=== PATIENT | female | born 1955 | race Caucasian/White ===

== ENCOUNTER 2016-03-11 20:09 | Inpatient (IN) | payer OTHER ==
[~2016-03-11] VITALS: Ht 162.6 cm; Wt 118.3 kg
[~2016-03-11 20:09] MED LIST: AMBIEN10 MG PO; AMITRIPTYLINE H10 MG PO; AMLODIPINE BESY10 MG PO; AMLODIPINE BESYL5 MG PO; AMOXICILLIN500 M1 PO; AMOXICILLIN500 MG PO; ANTI-DIARRHEAL2 M2 PO; APIDRA SOL100 UNIT/1 SC; APIDRA100 UNIT/1; APIDRA100 UNIT/1 SC; APIDRA100 UNIT/1 SQ; APIDRA100 UNITS/ SC; ASMANEX TW200 MICROG IH; ASPIR 8181 M1 PO; ASPIR-LOW81 MG PO; ATARAX,VISTARIL25 MG PO; ATIVAN0.5 MG PO; Aspirin E.C. PO; Atarax,Vistaril PO; BAYER CHEWABLE81 MG PO; CEFUROXIME500 MG PO; CLOPIDOGREL75 MG PO; COUMADIN,JANTO2.5 MG PO; COZAAR50 MG PO; CRESTOR10 MG PO; CRESTOR20 MG PO; Calan SR,Covera HS,I PO; EFFEXOR75 MG PO; ENDOCET 5-3251 EACH PO; ERGOCALCIF50000 UNIT PO; FLUCONAZOLE100 MG PO; FUROSEMIDE20 MG PO; IRON 100 PLUS1 EACH PO; K-DUR10 ME2 PO; K-DUR20 MEQ PO; LANTUS 10100 UNITS/ SC; LANTUS 3 M100 UNITS/ SC; LANTUS 3 M100 UNITS1 SC; LANTUS100 UNIT/1 SQ; LASIX20 MG PO; LASIX40 MG PO; LEVEMIR100 UNIT/2 SC; LEVOTHYROXINE125 MCG PO; LEVOXYL125 MCG PO; LOPERAMIDE2 M1 PO; LOPERAMIDE2 MG PO; LOPRESSOR50 MG PO; LORAZEPAM0.5 MG PO; LOSARTAN POTASS50 MG PO; Lasix PO; Levothroid,Synthroid PO; Lopressor PO; MAXZIDE 75/51 TABLET PO; METOCLOPRAMIDE H5 MG PO; METOLAZONE2.5 MG PO; METOPROLOL TART25 MG PO; MOTRIN600 MG PO; MYCOSTATIN 100,60 ML PO; NAPROSYN-EC500 MG PO; NITROSTAT0.4 MG SL; NITROSTAT0.6 MG SL; NORCO 5/3251 TABLET PO; OMEPRAZOLE40 M1 PO; PAXIL10 MG PO; PAXIL20 MG PO; PAXIL30 MG PO; PHENERGAN W/ COD1 ML PO; PHENERGAN-CODE120 ML PO; PLAVIX75 MG PO; PREDNISONE10 MG PO; PREDNISONE20 MG PO; PROAIR HFA8.5 GM IH; PROMETHAZINE-P118 M1 PO; RANITIDINE HCL150 MG PO; RANITIDINE HCL300 M1 PO; RANITIDINE HCL300 MG PO; REGLAN5 MG PO; SYNTHROID100 MCG PO; SYNTHROID125 MCG PO; TOPROL XL25 MG PO; Tessalon Perle PO; ULTRACET1 TABLET PO; ULTRAM50 MG PO; UNITHROID112 MCG PO; VENLAFAXINE HCL75 M3 PO; VENTOLIN; VENTOLIN HFA18 GM IH; VIT D; VITAMIN D2400 UNIT PO; VITAMIN D250000 UNIT PO; Vitamin D, Drisdol PO; WELCHOL625 MG PO; ZANTAC300 MG PO; ZOFRAN4 MG PO; Zestril,Prinivil PO; Zocor PO
[2016-03-11] MEDS ORDERED: NITROSTAT0.4 MG SL (21:33)
[2016-03-11] MEDS ORDERED: ERGOCALCIF50000 UNIT PO (21:34)
[2016-03-11] MEDS ORDERED: PHENERGAN-CODE120 ML PO (21:35)
[2016-03-11] MEDS ORDERED: APIDRA100 UNIT/1 SC (21:36)
[2016-03-11] MEDS ORDERED: OMEPRAZOLE40 M1 PO (21:39)
[2016-03-11] MEDS ORDERED: ZOFRAN ODT4 MG PO (21:39)
[2016-03-11] MEDS ORDERED: LORAZEPAM0.5 MG PO (21:40)
[2016-03-11] MEDS ORDERED: EFFEXOR XR75 MG PO (21:41)
[2016-03-11 22:02] LABS: HEMATOCRIT 32.6 % (36.0-46.0); MCH 29.5 PG (29.0-34.0); MCHC 32.5 G/DL (30.0-36.0); MCV 90.8 FL (83-99); MEAN PLAT.VOLUME 11.4 uM^3 (9.5-12.4); PLATELET COUNT 226 K/uL (156-360); RBC DIS.WIDTH-CV 13.9 % (11.8-14.6); RBC DIS.WIDTH-SD 44.5 % (39-53); RED BLOOD COUNT 3.59 M/uL (3.80-5.20); WHITE BLOOD COUNT 8.8 K/uL (4.1-10.2)
[2016-03-11 22:10] LABS: CHLORIDE 109 mEq/L (99-109); POTASSIUM 3.9 mEq/L (3.7-5.4); SODIUM 140 mEq/L (136-147)
[2016-03-11 22:12] LABS: GLUCOSE 141 mg/dL (70-99)
[2016-03-11 22:13] LABS: ANION GAP 8 MEQ/L (2-14)
[2016-03-11 22:16] LABS: GFR ESTIMATE (CALCULATED) 37 mL/min/
[2016-03-11 22:17] LABS: UREA NITROGEN (BUN) 23 mg/dL (9-23)
[2016-03-11 22:22] LABS: TROP-I INTERPRETATION NEGATIVE; TROPONIN-I 0.02 ng/mL (0.0-0.30)
[2016-03-12 01:12] LABS: D-DIMER ELISA 0.72 mg/L FEU (< 0.57)
[2016-03-12 02:14] LABS: INFLUENZA A VIRAL ANTIGEN NEGATIVE; INFLUENZA B VIRAL ANTIGEN NEGATIVE
[2016-03-12 05:47] LABS: HEMATOCRIT 32.6 % (36.0-46.0); MCH 29.1 PG (29.0-34.0); MCHC 32.2 G/DL (30.0-36.0); MCV 90.3 FL (83-99); MEAN PLAT.VOLUME 11.5 uM^3 (9.5-12.4); PLATELET COUNT 213 K/uL (156-360); RBC DIS.WIDTH-CV 13.8 % (11.8-14.6); RBC DIS.WIDTH-SD 44.1 % (39-53); RED BLOOD COUNT 3.61 M/uL (3.80-5.20); WHITE BLOOD COUNT 7.1 K/uL (4.1-10.2)
[2016-03-12 05:57] LABS: CHLORIDE 106 mEq/L (99-109); POTASSIUM 4.6 mEq/L (3.7-5.4); SODIUM 137 mEq/L (136-147)
[2016-03-12 06:00] LABS: ANION GAP 11 MEQ/L (2-14)
[2016-03-12 06:01] LABS: TOTAL BILIRUBIN 0.5 mg/dL (0.0-1.0)
[2016-03-12 06:02] LABS: ALKALINE PHOSPHATASE 114 IU/L (3-129)
[2016-03-12 06:03] LABS: GFR ESTIMATE (CALCULATED) 30 mL/min/
[2016-03-12 06:04] LABS: UREA NITROGEN (BUN) 29 mg/dL (9-23)
[2016-03-12 06:07] LABS: TROP-I INTERPRETATION NEGATIVE; TROPONIN-I 0.02 ng/mL (0.0-0.30)
[2016-03-12 06:25] LABS: GLUCOSE 406 mg/dL (70-99)
[2016-03-12 08:27] LABS: POINT-OF-CARE METER ID UU13113702
[2016-03-12 13:06] LABS: TROP-I INTERPRETATION NEGATIVE; TROPONIN-I 0.01 ng/mL (0.0-0.30)
[2016-03-12 14:16] LABS: Estimated Average Glucose 220 mg/dL (70-123); HEMOGLOBIN A1c (GLYCOHEMOGLOB) 9.3 % HGB (Below 5.7)
[2016-03-12 15:30] VITALS: BP 172/79
[2016-03-12 19:38] VITALS: BP 158/74
[2016-03-12 23:49] VITALS: BP 152/73
[2016-03-13 03:18] VITALS: BP 148/72
[2016-03-13 06:59] LABS: HEMATOCRIT 33.5 % (36.0-46.0); MCH 29.3 PG (29.0-34.0); MCHC 32.5 G/DL (30.0-36.0); MCV 90.1 FL (83-99); MEAN PLAT.VOLUME 11.5 uM^3 (9.5-12.4); RBC DIS.WIDTH-SD 46.1 % (39-53); RED BLOOD COUNT 3.72 M/uL (3.80-5.20)
[2016-03-13 07:00] LABS: PLATELET COUNT 277 K/uL (156-360); WHITE BLOOD COUNT 10.4 K/uL (4.1-10.2)
[2016-03-13 07:11] LABS: ANION GAP 10 MEQ/L (2-14); CHLORIDE 107 MEQ/L (99-109); GFR ESTIMATE (CALCULATED) 30 mL/min/; POTASSIUM 3.9 MEQ/L (3.7-5.4); SAMPLE HEMOLYSIS CHECK 0; SAMPLE ICTERIC CHECK 0; SAMPLE LIPEMIA CHECK 0; SODIUM 143 MEQ/L (136-147)
[2016-03-13 07:20] LABS: GLUCOSE 72 mg/dL (70-99); UREA NITROGEN (BUN) 44 mg/dL (9-23)
[2016-03-13 07:45] VITALS: BP 177/80
[2016-03-13 12:10] VITALS: BP 146/70
[2016-03-13 16:45] VITALS: BP 142/77
[2016-03-13 19:40] VITALS: BP 146/72
[2016-03-13 23:44] VITALS: BP 163/82
[2016-03-14 03:41] VITALS: BP 123/79
[2016-03-14 06:30] LABS: HEMATOCRIT 35.9 % (36.0-46.0); MCH 29.6 PG (29.0-34.0); MCHC 32.6 G/DL (30.0-36.0); MCV 90.9 FL (83-99); MEAN PLAT.VOLUME 11.4 uM^3 (9.5-12.4); PLATELET COUNT 253 K/uL (156-360); RBC DIS.WIDTH-CV 13.8 % (11.8-14.6); RBC DIS.WIDTH-SD 46.4 % (39-53); RED BLOOD COUNT 3.95 M/uL (3.80-5.20)
[2016-03-14 06:31] LABS: WHITE BLOOD COUNT 5.9 K/uL (4.1-10.2)
[2016-03-14 06:47] LABS: ANION GAP 10 MEQ/L (2-14); CHLORIDE 102 MEQ/L (99-109); GFR ESTIMATE (CALCULATED) 22 mL/min/; POTASSIUM 4.4 MEQ/L (3.7-5.4); SAMPLE HEMOLYSIS CHECK 0; SAMPLE ICTERIC CHECK 0; SAMPLE LIPEMIA CHECK 0; SODIUM 138 MEQ/L (136-147); UREA NITROGEN (BUN) 53 mg/dL (9-23)
[2016-03-14 06:57] LABS: GLUCOSE 254 mg/dL (70-99)
[2016-03-14 08:00] VITALS: BP 156/87
[2016-03-14 15:33] VITALS: BP 142/80
[2016-03-14 23:20] VITALS: BP 166/76
[2016-03-15 07:40] LABS: ANION GAP 11 MEQ/L (2-14); CHLORIDE 101 MEQ/L (99-109); GFR ESTIMATE (CALCULATED) 28 mL/min/; GLUCOSE 215 mg/dL (70-99); POTASSIUM 4.3 MEQ/L (3.7-5.4); SAMPLE HEMOLYSIS CHECK 1; SAMPLE ICTERIC CHECK 0; SAMPLE LIPEMIA CHECK 0; SODIUM 137 MEQ/L (136-147); UREA NITROGEN (BUN) 53 mg/dL (9-23)
[2016-03-15 07:54] VITALS: BP 156/93
[2016-03-15 16:04] VITALS: BP 140/69
[2016-03-15 23:15] VITALS: BP 179/95
[2016-03-16 07:51] LABS: ANION GAP 7 MEQ/L (2-14); CHLORIDE 103 MEQ/L (99-109); EOSINOPHIL (%) 0.1 % (0-5); GFR ESTIMATE (CALCULATED) 30 mL/min/; GLUCOSE 151 mg/dL (70-99); HEMATOCRIT 36.8 % (36.0-46.0); IMMATURE GRANULOCYTE (%) 0.7 % (0.0-0.7); IMMATURE GRANULOCYTE COUNT 0.1 K/uL; LYMPHOCYTE COUNT 1.6 K/uL (1.0-2.8); MCH 28.9 PG (29.0-34.0); MCHC 32.3 G/DL (30.0-36.0); MCV 89.3 FL (83-99); MEAN PLAT.VOLUME 11.1 uM^3 (9.5-12.4); MONOCYTE COUNT 0.5 K/uL (0-0.8); NEUTROPHIL (%) 75.1 % (45-76); NEUTROPHIL COUNT 6.5 K/uL (1.8-6.4); PLATELET COUNT 301 K/uL (156-360); POTASSIUM 4.4 MEQ/L (3.7-5.4); RBC DIS.WIDTH-CV 13.5 % (11.8-14.6); RBC DIS.WIDTH-SD 44.2 % (39-53); RED BLOOD COUNT 4.12 M/uL (3.80-5.20); SAMPLE HEMOLYSIS CHECK 0; SAMPLE ICTERIC CHECK 0; SAMPLE LIPEMIA CHECK 0; SODIUM 137 MEQ/L (136-147); UREA NITROGEN (BUN) 50 mg/dL (9-23)
[2016-03-16 08:04] LABS: WHITE BLOOD COUNT 8.6 K/uL (4.1-10.2)
[2016-03-16 08:25] VITALS: BP 179/93
[2016-03-16] MEDS ORDERED: CEFTIN250 MG PO (12:55)
[2016-03-16] MEDS ORDERED: AMLODIPINE BES2.5 MG PO (12:55)
[2016-03-16] MEDS ORDERED: FUROSEMIDE20 MG PO (12:56)
[2016-03-16] MEDS ORDERED: PREDNISONE20 MG PO (12:58)
[2016-03-16] MEDS ORDERED: MONTELUKAST SOD10 MG PO (12:59)
[2016-03-16] MEDS ORDERED: FLOVENT 11120 INHALA IH (13:37)
== END 2016-03-16 14:15 | disposition home or self-care (01) | DRG 190 ==
LOC: EME 20:09 → EDOF 03-12 00:30 → 2EAST 03-12 00:30
PROVIDERS: Hospitalist; Internal Medicine; Physician Assistant Medical
DX: J44.0 Chronic obstructive pulmonary disease with (acute) lower respiratory infection (principal); J96.01 Acute respiratory failure with hypoxia; I50.43 Acute on chronic combined systolic (congestive) and diastolic (congestive) heart failure; N17.9 Acute kidney failure, unspecified; I13.0 Hypertensive heart and chronic kidney disease with heart failure and stage 1 through stage 4 chronic kidney disease, or unspecified chronic kidney disease; Z68.41 Body mass index [BMI] 40.0-44.9, adult; J44.1 Chronic obstructive pulmonary disease with (acute) exacerbation; N18.3 Chronic kidney disease, stage 3 (moderate); I25.10 Atherosclerotic heart disease of native coronary artery without angina pectoris; E11.22 Type 2 diabetes mellitus with diabetic chronic kidney disease; I25.5 Ischemic cardiomyopathy; F32.9 Major depressive disorder, single episode, unspecified; K21.9 Gastro-esophageal reflux disease without esophagitis; Z95.5 Presence of coronary angioplasty implant and graft; J20.9 Acute bronchitis, unspecified; B19.20 Unspecified viral hepatitis C without hepatic coma; E03.9 Hypothyroidism, unspecified; E78.5 Hyperlipidemia, unspecified; M19.90 Unspecified osteoarthritis, unspecified site; Z79.4 Long term (current) use of insulin; E66.01 Morbid (severe) obesity due to excess calories; I45.10 Unspecified right bundle-branch block; R60.0 Localized edema; Z88.6 Allergy status to analgesic agent; Z95.1 Presence of aortocoronary bypass graft; Z88.1 Allergy status to other antibiotic agents; Z88.8 Allergy status to other drugs, medicaments and biological substances; R53.1 Weakness; R91.1 Solitary pulmonary nodule
CPT/HCPCS: 71020; 71250; 78582; 80048; 80053; 82948; 83036; 84484; 85025; 85027; 85379; 87040; 87493; 87502; 93005; 93971; 94640; 94640 76; 94799; 99202; 99281; 99285; A9539; A9540; J0456; J0696; J1644; J1815; J1940; J1956; J2930; J7050; J7512

== ENCOUNTER 2016-04-12 21:35 | Inpatient (IN) | payer OTHER, BC ==
[~2016-04-12] VITALS: Ht 162.6 cm; Wt 116.0 kg
[~2016-04-12 21:35] MED LIST changes: +AMLODIPINE BES2.5 MG PO; +CEFTIN250 MG PO; +EFFEXOR XR75 MG PO; +FLOVENT 11120 INHALA IH; +MONTELUKAST SOD10 MG PO; +ZOFRAN ODT4 MG PO
[2016-04-12 21:59] LABS: HEMATOCRIT 39.4 % (36.0-46.0); MCH 29.4 PG (29.0-34.0); MCHC 33.8 G/DL (30.0-36.0); MCV 87.2 FL (83-99); MEAN PLAT.VOLUME 11.3 uM^3 (9.5-12.4); PLATELET COUNT 274 K/uL (156-360); RBC DIS.WIDTH-CV 13.9 % (11.8-14.6); RED BLOOD COUNT 4.52 M/uL (3.80-5.20)
[2016-04-12 22:13] LABS: CHLORIDE 100 mEq/L (99-109); POTASSIUM 3.8 mEq/L (3.7-5.4); SODIUM 141 mEq/L (136-147)
[2016-04-12 22:15] LABS: GLUCOSE 434 mg/dL (70-99)
[2016-04-12 22:16] LABS: ANION GAP 13 MEQ/L (2-14)
[2016-04-12 22:18] LABS: GFR ESTIMATE (CALCULATED) 30 mL/min/
[2016-04-12 22:19] LABS: TROP-I INTERPRETATION NEGATIVE; TROPONIN-I 0.02 ng/mL (0.0-0.30); UREA NITROGEN (BUN) 16 mg/dL (9-23)
[2016-04-12] MEDS ORDERED: DEXAMETHASONE6 MG PO (23:24)
[2016-04-12] MEDS ORDERED: LO-DOSE ASPIRIN81 M1 PO (23:26)
[2016-04-12] MEDS ORDERED: LASIX20 MG PO (23:28)
[2016-04-12] MEDS ORDERED: AMLODIPINE BES2.5 MG PO (23:29)
[2016-04-12 23:31] LABS: POINT-OF-CARE METER ID UU14100415
[2016-04-12] MEDS ORDERED: APIDRA SOL100 UNIT/1 SC (23:31)
[2016-04-12] MEDS ORDERED: LANTUS 3 M100 UNITS1 SC (23:31)
[2016-04-13] VITALS (8 sets, daily range): BP systolic 94–188; BP diastolic 52–90
[2016-04-13 05:46] LABS: TROP-I INTERPRETATION NEGATIVE; TROPONIN-I 0.04 ng/mL (0.0-0.30)
[2016-04-13 09:26] LABS: POINT-OF-CARE METER ID UU13113700
[2016-04-13 10:33] LABS: TROP-I INTERPRETATION NEGATIVE; TROPONIN-I 0.06 ng/mL (0.0-0.30)
[2016-04-13 17:55] LABS: POINT-OF-CARE METER ID UU13113700
[2016-04-13 21:47] LABS: POINT-OF-CARE METER ID UU14162513
[2016-04-14 05:08] VITALS: BP 113/65
[2016-04-14 06:40] LABS: EOSINOPHIL (%) 6.9 % (0-5); EOSINOPHIL COUNT 0.4 K/uL (0-0.3); HEMATOCRIT 35.6 % (36.0-46.0); IMMATURE GRANULOCYTE (%) 0.2 % (0.0-0.7); LYMPHOCYTE COUNT 1.7 K/uL (1.0-2.8); MCH 29.4 PG (29.0-34.0); MCHC 31.7 G/DL (30.0-36.0); MEAN PLAT.VOLUME 11.7 uM^3 (9.5-12.4); MONOCYTE COUNT 0.6 K/uL (0-0.8); NEUTROPHIL COUNT 3.4 K/uL (1.8-6.4); PLATELET COUNT 237 K/uL (156-360); RBC DIS.WIDTH-CV 14.7 % (11.8-14.6); RBC DIS.WIDTH-SD 49.9 % (39-53); RED BLOOD COUNT 3.85 M/uL (3.80-5.20); WHITE BLOOD COUNT 6.1 K/uL (4.1-10.2)
[2016-04-14 06:45] LABS: ALKALINE PHOSPHATASE 68 IU/L (3-129); ANION GAP 9 MEQ/L (2-14); CHLORIDE 104 MEQ/L (99-109); DIRECT BILIRUBIN 0.1 mg/dL (0.0-0.3); GFR ESTIMATE (CALCULATED) 14 mL/min/; MCV 92.5 FL (83-99); POTASSIUM 3.3 MEQ/L (3.7-5.4); SAMPLE HEMOLYSIS CHECK 0; SAMPLE ICTERIC CHECK 0; SAMPLE LIPEMIA CHECK 0; SODIUM 144 MEQ/L (136-147); TOTAL BILIRUBIN 0.4 MG/DL (0.0-1.0)
[2016-04-14 06:50] LABS: GLUCOSE 80 mg/dL (70-99); UREA NITROGEN (BUN) 26 mg/dL (9-23)
[2016-04-14 07:39] VITALS: BP 113/68
[2016-04-14 08:12] LABS: POINT-OF-CARE METER ID UU13113700
[2016-04-14 11:51] VITALS: BP 110/58
[2016-04-14 13:45] LABS: ADD MIUA? YES; BILIRUBIN SMALL; BLOOD SMALL; COLOR DK YELLOW ((YELLOW)); GLUCOSE (STRIP) 500; KETONES TRACE; LEUKOCYTES NEGATIVE; NITRITE NEGATIVE; PH, URINE 5.5 (5-8); PROTEIN (STRIP) >=300; SPECIFIC GRAVITY 1.025 (1.000-1.030); UROBILINOGEN 0.2 MG/DL (0.2-1.0)
[2016-04-14 15:57] VITALS: BP 106/63
[2016-04-14 16:02] LABS: BACTERIA RARE /HPF; CASTS PRESENT /LPF; CRYSTALS NONE SEEN; EPITHELIAL CELLS 2+ /HPF; MUCUS TRACE /LPF; RED BLOOD CELLS 0-5 /HPF (0-5); UCUL ADDED? NO; WHITE BLOOD CELLS RARE /HPF (0-5)
[2016-04-14 16:03] LABS: HYALINE CASTS 0-5 /LPF
[2016-04-14 16:04] LABS: COARSE GRANULAR CASTS 0-5 /LPF; WAXY CASTS 0-5 /LPF
[2016-04-14 21:33] VITALS: BP 150/72
[2016-04-14 21:50] LABS: POINT-OF-CARE METER ID UU13113700
[2016-04-15 04:44] VITALS: BP 122/76
[2016-04-15 06:24] LABS: EOSINOPHIL (%) 8.6 % (0-5); EOSINOPHIL COUNT 0.5 K/uL (0-0.3); LYMPHOCYTE COUNT 1.6 K/uL (1.0-2.8); MCH 29.5 PG (29.0-34.0); MCHC 31.7 G/DL (30.0-36.0); MCV 93.1 FL (83-99); MEAN PLAT.VOLUME 11.6 uM^3 (9.5-12.4); MONOCYTE (%) 9.6 % (3-12); MONOCYTE COUNT 0.6 K/uL (0-0.8); NEUTROPHIL (%) 54.4 % (45-76); NEUTROPHIL COUNT 3.3 K/uL (1.8-6.4); PLATELET COUNT 216 K/uL (156-360); RBC DIS.WIDTH-CV 14.7 % (11.8-14.6); RBC DIS.WIDTH-SD 49.9 % (39-53); RED BLOOD COUNT 3.76 M/uL (3.80-5.20); WHITE BLOOD COUNT 6.1 K/uL (4.1-10.2)
[2016-04-15 06:49] LABS: ANION GAP 8 MEQ/L (2-14); CHLORIDE 107 MEQ/L (99-109); GFR ESTIMATE (CALCULATED) 16 mL/min/; GLUCOSE 71 mg/dL (70-99); POTASSIUM 3.8 MEQ/L (3.7-5.4); SAMPLE HEMOLYSIS CHECK 0; SAMPLE ICTERIC CHECK 0; SAMPLE LIPEMIA CHECK 0; SODIUM 142 MEQ/L (136-147); UREA NITROGEN (BUN) 29 mg/dL (9-23)
[2016-04-15 08:00] VITALS: BP 134/65
[2016-04-15 12:27] VITALS: BP 136/78
[2016-04-15 12:58] LABS: POINT-OF-CARE METER ID UU14162513
[2016-04-15 16:23] VITALS: BP 132/63
[2016-04-15 17:30] LABS: POINT-OF-CARE METER ID UU14162513
[2016-04-15 20:30] VITALS: BP 153/69
[2016-04-15 21:50] LABS: POINT-OF-CARE METER ID UU14149396
[2016-04-16] VITALS (8 sets, daily range): BP systolic 130–172; BP diastolic 60–90
[2016-04-16 05:59] LABS: EOSINOPHIL (%) 8.2 % (0-5); EOSINOPHIL COUNT 0.5 K/uL (0-0.3); HEMATOCRIT 35.3 % (36.0-46.0); LYMPHOCYTE COUNT 1.6 K/uL (1.0-2.8); MCH 29.3 PG (29.0-34.0); MCHC 31.7 G/DL (30.0-36.0); MCV 92.4 FL (83-99); MEAN PLAT.VOLUME 11.3 uM^3 (9.5-12.4); MONOCYTE (%) 7.5 % (3-12); MONOCYTE COUNT 0.5 K/uL (0-0.8); NEUTROPHIL COUNT 3.4 K/uL (1.8-6.4); PLATELET COUNT 236 K/uL (156-360); RBC DIS.WIDTH-CV 14.6 % (11.8-14.6); RBC DIS.WIDTH-SD 49.7 % (39-53); RED BLOOD COUNT 3.82 M/uL (3.80-5.20)
[2016-04-16 06:32] LABS: ANION GAP 8 MEQ/L (2-14); CHLORIDE 108 MEQ/L (99-109); GFR ESTIMATE (CALCULATED) 22 mL/min/; MAGNESIUM 1.7 mg/dl (1.3-2.7); POTASSIUM 4.3 MEQ/L (3.7-5.4); SAMPLE HEMOLYSIS CHECK 0; SAMPLE ICTERIC CHECK 0; SAMPLE LIPEMIA CHECK 0; SODIUM 142 MEQ/L (136-147); UREA NITROGEN (BUN) 28 mg/dL (9-23)
[2016-04-16 06:33] LABS: GLUCOSE 101 mg/dL (70-99)
[2016-04-16 07:58] LABS: POINT-OF-CARE METER ID UU14149396
[2016-04-16 11:44] LABS: POINT-OF-CARE METER ID UU14149396
[2016-04-16 16:04] LABS: POINT-OF-CARE METER ID UU14149396
[2016-04-16 21:28] LABS: POINT-OF-CARE METER ID UU14149397
[2016-04-17 04:21] VITALS: BP 152/70
[2016-04-17 05:42] LABS: UR CREATININE CONCENTRATION 34.8 MG/DL
[2016-04-17 06:46] LABS: POINT-OF-CARE METER ID UU14149397
[2016-04-17 08:04] VITALS: BP 190/94
[2016-04-17 13:10] VITALS: BP 154/60
[2016-04-17 16:26] VITALS: BP 168/80
[2016-04-17 17:22] LABS: POINT-OF-CARE METER ID UU13113717
[2016-04-17 21:35] LABS: POINT-OF-CARE METER ID UU13113717
[2016-04-18 00:04] VITALS: BP 168/84
[2016-04-18 05:18] LABS: HEMATOCRIT 33.5 % (36.0-46.0); MCH 29.7 PG (29.0-34.0); MCHC 32.5 G/DL (30.0-36.0); MCV 91.3 FL (83-99); MEAN PLAT.VOLUME 11.6 uM^3 (9.5-12.4); PLATELET COUNT 197 K/uL (156-360); RBC DIS.WIDTH-CV 14.4 % (11.8-14.6); RBC DIS.WIDTH-SD 47.4 % (39-53); RED BLOOD COUNT 3.67 M/uL (3.80-5.20); WHITE BLOOD COUNT 5.2 K/uL (4.1-10.2)
[2016-04-18 05:44] LABS: ANION GAP 9 MEQ/L (2-14); CHLORIDE 109 MEQ/L (99-109); GFR ESTIMATE (CALCULATED) 28 mL/min/; GLUCOSE 88 mg/dL (70-99); POTASSIUM 4.2 MEQ/L (3.7-5.4); SAMPLE HEMOLYSIS CHECK 0; SAMPLE ICTERIC CHECK 0; SAMPLE LIPEMIA CHECK 0; SODIUM 140 MEQ/L (136-147); UREA NITROGEN (BUN) 25 mg/dL (9-23)
[2016-04-18 07:36] VITALS: BP 167/78
[2016-04-18 11:28] LABS: POINT-OF-CARE METER ID UU13113717
[2016-04-18 12:07] LABS: ANION GAP 8 MEQ/L (2-14); CHLORIDE 111 MEQ/L (99-109); GFR ESTIMATE (CALCULATED) 30 mL/min/; GLUCOSE 96 mg/dL (70-99); POTASSIUM 4.5 MEQ/L (3.7-5.4); SAMPLE HEMOLYSIS CHECK 0; SAMPLE ICTERIC CHECK 0; SAMPLE LIPEMIA CHECK 0; SODIUM 141 MEQ/L (136-147); UREA NITROGEN (BUN) 24 mg/dL (9-23)
[2016-04-18 15:47] VITALS: BP 139/79
[2016-04-18 23:59] VITALS: BP 160/78
[2016-04-19 06:06] LABS: ANION GAP 8 MEQ/L (2-14); CHLORIDE 109 MEQ/L (99-109); GFR ESTIMATE (CALCULATED) 28 mL/min/; GLUCOSE 68 mg/dL (70-99); POTASSIUM 3.8 MEQ/L (3.7-5.4); SAMPLE HEMOLYSIS CHECK 0; SAMPLE ICTERIC CHECK 0; SAMPLE LIPEMIA CHECK 0; SODIUM 140 MEQ/L (136-147); UREA NITROGEN (BUN) 23 mg/dL (9-23)
[2016-04-19 08:37] VITALS: BP 151/75
[2016-04-19] MEDS ORDERED: NIFEDIPINE ER30 MG PO (11:49)
[2016-04-19] MEDS ORDERED: FUROSEMIDE20 MG PO (11:49)
== END 2016-04-19 13:13 | disposition home or self-care (01) | DRG 683 ==
LOC: EME 21:35 → 5WEST 23:02 → EDOF 23:02 → 5WEST 04-13 00:22 → 3EAST 04-15 10:23 → 5WEST 04-15 10:23 → 4SOUTH 04-15 10:23 → 3EAST 04-16 16:54
PROVIDERS: Emergency Medicine; Family Medicine; Internal Medicine; Internal Medicine Nephrology; Physician Assistant
DX: N17.9 Acute kidney failure, unspecified (principal); Z68.41 Body mass index [BMI] 40.0-44.9, adult; E11.21 Type 2 diabetes mellitus with diabetic nephropathy; K31.84 Gastroparesis; I13.0 Hypertensive heart and chronic kidney disease with heart failure and stage 1 through stage 4 chronic kidney disease, or unspecified chronic kidney disease; I50.40 Unspecified combined systolic (congestive) and diastolic (congestive) heart failure; R07.89 Other chest pain; N18.3 Chronic kidney disease, stage 3 (moderate); E66.01 Morbid (severe) obesity due to excess calories; E11.65 Type 2 diabetes mellitus with hyperglycemia; I25.10 Atherosclerotic heart disease of native coronary artery without angina pectoris; E03.9 Hypothyroidism, unspecified; J45.909 Unspecified asthma, uncomplicated; Z95.1 Presence of aortocoronary bypass graft; K21.9 Gastro-esophageal reflux disease without esophagitis; Z79.4 Long term (current) use of insulin; Z95.5 Presence of coronary angioplasty implant and graft; M19.90 Unspecified osteoarthritis, unspecified site; Z96.653 Presence of artificial knee joint, bilateral; E78.5 Hyperlipidemia, unspecified; Z79.84 Long term (current) use of oral hypoglycemic drugs; J44.9 Chronic obstructive pulmonary disease, unspecified; E11.22 Type 2 diabetes mellitus with diabetic chronic kidney disease; T81.89XA Other complications of procedures, not elsewhere classified, initial encounter; Y83.2 Surgical operation with anastomosis, bypass or graft as the cause of abnormal reaction of the patient, or of later complication, without mention of misadventure at the time of the procedure
CPT/HCPCS: 71010; 71250; 76770; 80048; 80048 91; 80076; 81003; 82009; 82436; 82570; 82948; 83735; 83880; 84100; 84133; 84156; 84300; 84484; 85025; 85027; 93005; 94640; 99202; 99281; 99285; C9113; G0378; J1650; J1815; J2060; J2270; J2405; J2765; J7030; J7040

== ENCOUNTER 2016-04-28 13:01 | Emergency (ER) | payer BC ==
[~2016-04-28] VITALS: Ht 162.6 cm; Wt 115.4 kg
[~2016-04-28 13:01] MED LIST changes: +DEXAMETHASONE6 MG PO; +LO-DOSE ASPIRIN81 M1 PO; +NIFEDIPINE ER30 MG PO
[2016-04-28 16:52] LABS: EOSINOPHIL (%) 0.3 % (0-5); IMMATURE GRANULOCYTE (%) 0.3 % (0.0-0.7); IMMATURE GRANULOCYTE COUNT 0.2 K/uL; LYMPHOCYTE COUNT 0.7 K/uL (1.0-2.8); MCH 29.3 PG (29.0-34.0); MCV 88.7 FL (83-99); MEAN PLAT.VOLUME 11.8 uM^3 (9.5-12.4); MONOCYTE (%) 1.8 % (3-12); MONOCYTE COUNT 0.1 K/uL (0-0.8); NEUTROPHIL (%) 87.9 % (45-76); NEUTROPHIL COUNT 6.5 K/uL (1.8-6.4); RBC DIS.WIDTH-SD 44.3 % (39-53); RED BLOOD COUNT 4.17 M/uL (3.80-5.20)
[2016-04-28 16:55] LABS: PLATELET COUNT 265 K/uL (156-360); WHITE BLOOD COUNT 7.4 K/uL (4.1-10.2)
[2016-04-28 16:59] LABS: INTER. NORMALIZED RATIO 1.1; PROTHROMBIN TIME 11.5 (9.2-11.2); PTT 24.9 (25-32)
[2016-04-28 17:03] LABS: CHLORIDE 104 mEq/L (99-109); POTASSIUM 4.1 mEq/L (3.7-5.4); SODIUM 141 mEq/L (136-147)
[2016-04-28 17:05] LABS: GLUCOSE 326 mg/dL (70-99)
[2016-04-28 17:06] LABS: ANION GAP 11 MEQ/L (2-14)
[2016-04-28 17:07] LABS: TOTAL BILIRUBIN 0.4 mg/dL (0.0-1.0)
[2016-04-28 17:08] LABS: ALKALINE PHOSPHATASE 99 IU/L (3-129)
[2016-04-28 17:09] LABS: GFR ESTIMATE (CALCULATED) 27 mL/min/
[2016-04-28 17:10] LABS: UREA NITROGEN (BUN) 34 mg/dL (9-23)
[2016-04-28 18:16] VITALS: BP 156/94
== END 2016-04-28 18:22 | disposition home or self-care (01) ==
LOC: EME 13:01
PROVIDERS: Emergency Medicine
DX: S80.11XA Contusion of right lower leg, initial encounter (principal); X58.XXXA Exposure to other specified factors, initial encounter; R11.2 Nausea with vomiting, unspecified; Z79.02 Long term (current) use of antithrombotics/antiplatelets; Z95.1 Presence of aortocoronary bypass graft; I10 Essential (primary) hypertension; E78.5 Hyperlipidemia, unspecified; E03.9 Hypothyroidism, unspecified; E11.9 Type 2 diabetes mellitus without complications; Z79.4 Long term (current) use of insulin; Z79.82 Long term (current) use of aspirin
CPT/HCPCS: 73590; 80053; 85025; 85610; 85730; 93971; 99281; 99284

== ENCOUNTER 2016-07-01 12:21 | Inpatient (IN) | payer BC ==
[~2016-07-01] VITALS: Ht 165.1 cm; Wt 117.0 kg
[2016-07-01] MEDS ORDERED: NOVOLOG PE100 UNITS/ SC (13:23)
[2016-07-01] MEDS ORDERED: LEVEMIR FL100 UNIT/1 SC (13:23)
[2016-07-01] MEDS ORDERED: BYSTOLIC10 MG PO (13:24)
[2016-07-01] MEDS ORDERED: ASPIRIN81 M2 PO (13:24)
[2016-07-01] MEDS ORDERED: LASIX40 MG PO (13:25)
[2016-07-01 13:49] LABS: CHLORIDE 112 mEq/L (99-109); POTASSIUM 4.2 mEq/L (3.7-5.4); SODIUM 142 mEq/L (136-147)
[2016-07-01 13:51] LABS: GLUCOSE 131 mg/dL (70-99)
[2016-07-01 13:52] LABS: ANION GAP 10 MEQ/L (2-14)
[2016-07-01 13:54] LABS: GFR ESTIMATE (CALCULATED) 37 mL/min/
[2016-07-01 13:55] LABS: UREA NITROGEN (BUN) 24 mg/dL (9-23)
[2016-07-01 14:00] LABS: TROP-I INTERPRETATION NEGATIVE; TROPONIN-I < 0.01 ng/mL (0.0-0.30)
[2016-07-01 14:08] LABS: MCH 28.9 PG (29.0-34.0); MCHC 31.7 G/DL (30.0-36.0); MCV 91.2 FL (83-99); MEAN PLAT.VOLUME 10.6 uM^3 (9.5-12.4); PLATELET COUNT 264 K/uL (156-360); RBC DIS.WIDTH-SD 50.5 % (39-53); RED BLOOD COUNT 3.29 M/uL (3.80-5.20); WHITE BLOOD COUNT 5.6 K/uL (4.1-10.2)
[2016-07-01 14:19] LABS: D-DIMER ELISA 1.31 mg/L FEU (< 0.57)
[2016-07-01] MEDS ORDERED: PROMETHAZI6.25 MG/5 PO (15:17)
[2016-07-01 18:21] VITALS: BP 170/90
[2016-07-01 18:28] LABS: Estimated Average Glucose 160 mg/dL (70-123)
[2016-07-01 19:06] LABS: HEMOGLOBIN A1c (GLYCOHEMOGLOB) 7.2 % HGB (Below 5.7)
[2016-07-01 19:53] VITALS: BP 169/77
[2016-07-01 23:50] VITALS: BP 176/85
[2016-07-01 23:57] VITALS: BP 144/80
[2016-07-02] VITALS (7 sets, daily range): BP systolic 149–180; BP diastolic 73–93
[2016-07-02 01:03] LABS: TROP-I INTERPRETATION NEGATIVE; TROPONIN-I 0.02 ng/mL (0.0-0.30)
[2016-07-02 05:51] LABS: HEMATOCRIT 31.2 % (36.0-46.0); MCH 28.4 PG (29.0-34.0); MCHC 31.1 G/DL (30.0-36.0); MCV 91.5 FL (83-99); MEAN PLAT.VOLUME 10.7 uM^3 (9.5-12.4); PLATELET COUNT 252 K/uL (156-360); RBC DIS.WIDTH-CV 15.1 % (11.8-14.6); RBC DIS.WIDTH-SD 50.3 % (39-53); RED BLOOD COUNT 3.41 M/uL (3.80-5.20); WHITE BLOOD COUNT 5.8 K/uL (4.1-10.2)
[2016-07-02 05:55] LABS: ANION GAP 8 MEQ/L (2-14); CHLORIDE 107 MEQ/L (99-109); GFR ESTIMATE (CALCULATED) 35 mL/min/; POTASSIUM 3.5 MEQ/L (3.7-5.4); SAMPLE HEMOLYSIS CHECK 0; SAMPLE ICTERIC CHECK 0; SAMPLE LIPEMIA CHECK 0; SODIUM 143 MEQ/L (136-147); UREA NITROGEN (BUN) 25 mg/dL (9-23)
[2016-07-02 05:58] LABS: GLUCOSE 77 mg/dL (70-99)
[2016-07-02 06:01] LABS: TROP-I INTERPRETATION NEGATIVE; TROPONIN-I 0.02 ng/mL (0.0-0.30)
[2016-07-02 06:46] LABS: POINT-OF-CARE METER ID UU14149397
[2016-07-02 11:40] LABS: POINT-OF-CARE METER ID UU14149397
[2016-07-03 03:36] VITALS: BP 168/79
[2016-07-03 07:36] VITALS: BP 176/86
[2016-07-03 08:33] LABS: HEMATOCRIT 32.6 % (36.0-46.0); MCH 27.9 PG (29.0-34.0); MCHC 30.4 G/DL (30.0-36.0); MCV 91.8 FL (83-99); MEAN PLAT.VOLUME 10.6 uM^3 (9.5-12.4); PLATELET COUNT 250 K/uL (156-360); RBC DIS.WIDTH-CV 15.3 % (11.8-14.6); RED BLOOD COUNT 3.55 M/uL (3.80-5.20); WHITE BLOOD COUNT 5.7 K/uL (4.1-10.2)
[2016-07-03 08:56] LABS: ANION GAP 8 MEQ/L (2-14); CHLORIDE 105 MEQ/L (99-109); GFR ESTIMATE (CALCULATED) 32 mL/min/; SAMPLE HEMOLYSIS CHECK 0; SAMPLE ICTERIC CHECK 0; SAMPLE LIPEMIA CHECK 0; SODIUM 141 MEQ/L (136-147); UREA NITROGEN (BUN) 30 mg/dL (9-23)
[2016-07-03 09:10] LABS: GLUCOSE 157 mg/dL (70-99)
[2016-07-03 11:25] VITALS: BP 184/88
[2016-07-03 15:07] VITALS: BP 143/73
[2016-07-03 16:28] LABS: POINT-OF-CARE METER ID UU14188577
[2016-07-03 19:51] VITALS: BP 162/80
[2016-07-04] VITALS (8 sets, daily range): BP systolic 145–187; BP diastolic 68–82
[2016-07-04 07:50] LABS: POINT-OF-CARE METER ID UU14149397
[2016-07-04 10:08] LABS: EOSINOPHIL (%) 6.4 % (0-5); EOSINOPHIL COUNT 0.5 K/uL (0-0.3); HEMATOCRIT 32.7 % (36.0-46.0); IMMATURE GRANULOCYTE (%) 0.4 % (0.0-0.7); LYMPHOCYTE COUNT 1.3 K/uL (1.0-2.8); MCH 28.5 PG (29.0-34.0); MCHC 31.2 G/DL (30.0-36.0); MCV 91.3 FL (83-99); MEAN PLAT.VOLUME 10.7 uM^3 (9.5-12.4); MONOCYTE (%) 7.6 % (3-12); MONOCYTE COUNT 0.6 K/uL (0-0.8); NEUTROPHIL (%) 68.1 % (45-76); PLATELET COUNT 275 K/uL (156-360); RBC DIS.WIDTH-CV 15.3 % (11.8-14.6); RBC DIS.WIDTH-SD 51.4 % (39-53); RED BLOOD COUNT 3.58 M/uL (3.80-5.20); WHITE BLOOD COUNT 7.4 K/uL (4.1-10.2)
[2016-07-04 10:25] LABS: ANION GAP 10 MEQ/L (2-14); CHLORIDE 106 MEQ/L (99-109); POTASSIUM 3.9 MEQ/L (3.7-5.4); SAMPLE HEMOLYSIS CHECK 0; SAMPLE ICTERIC CHECK 0; SAMPLE LIPEMIA CHECK 0; SODIUM 143 MEQ/L (136-147)
[2016-07-04 10:31] LABS: GFR ESTIMATE (CALCULATED) 28 mL/min/; GLUCOSE 159 mg/dL (70-99); UREA NITROGEN (BUN) 30 mg/dL (9-23)
[2016-07-04] MEDS ORDERED: K-DUR20 MEQ PO (15:08)
[2016-07-04] MEDS ORDERED: LASIX40 MG PO (15:08)
[2016-07-04 16:53] LABS: POINT-OF-CARE METER ID UU14149397
== END 2016-07-04 16:34 | disposition home health service (06) | DRG 291 ==
LOC: EME 12:21 → EDOF 16:15 → 3EAST 17:56
PROVIDERS: Emergency Medicine; Internal Medicine; Physician Assistant; Student in an Organized Health Care Education/Training Program
DX: I13.0 Hypertensive heart and chronic kidney disease with heart failure and stage 1 through stage 4 chronic kidney disease, or unspecified chronic kidney disease (principal); I50.23 Acute on chronic systolic (congestive) heart failure; N17.9 Acute kidney failure, unspecified; N18.9 Chronic kidney disease, unspecified; I25.10 Atherosclerotic heart disease of native coronary artery without angina pectoris; E11.22 Type 2 diabetes mellitus with diabetic chronic kidney disease; E78.00 Pure hypercholesterolemia, unspecified; E03.9 Hypothyroidism, unspecified; J45.909 Unspecified asthma, uncomplicated; K21.9 Gastro-esophageal reflux disease without esophagitis; Z96.653 Presence of artificial knee joint, bilateral; E66.01 Morbid (severe) obesity due to excess calories; Z68.41 Body mass index [BMI] 40.0-44.9, adult; Z79.4 Long term (current) use of insulin; Z95.5 Presence of coronary angioplasty implant and graft; Z95.1 Presence of aortocoronary bypass graft; Z79.02 Long term (current) use of antithrombotics/antiplatelets
CPT/HCPCS: 71020; 78582; 80048; 82948; 83036; 83880; 84484; 85025; 85027; 85379; 93005; 93970; 94640; 94640 76; 99202; 99281; 99285; A9540; A9567; J0360; J1644; J1650; J1815; J1940

== ENCOUNTER 2016-11-08 11:48 | Inpatient (IN) | payer BC ==
[~2016-11-08] VITALS: Ht 165.1 cm; Wt 111.5 kg
[~2016-11-08 11:48] MED LIST changes: +ASPIRIN81 M2 PO; +BYSTOLIC10 MG PO; +LEVEMIR FL100 UNIT/1 SC; +NOVOLOG PE100 UNITS/ SC; +PROMETHAZI6.25 MG/5 PO
[2016-11-08 12:50] LABS: EOSINOPHIL (%) 1.8 % (0-5); EOSINOPHIL COUNT 0.2 K/uL (0-0.3); HEMATOCRIT 37.7 % (36.0-46.0); IMMATURE GRANULOCYTE (%) 0.3 % (0.0-0.7); LYMPHOCYTE COUNT 0.8 K/uL (1.0-2.8); MCH 28.5 PG (29.0-34.0); MCHC 32.4 G/DL (30.0-36.0); MCV 88.1 FL (83-99); MEAN PLAT.VOLUME 11.5 uM^3 (9.5-12.4); MONOCYTE (%) 3.7 % (3-12); MONOCYTE COUNT 0.3 K/uL (0-0.8); NEUTROPHIL (%) 85.8 % (45-76); PLATELET COUNT 243 K/uL (156-360); RBC DIS.WIDTH-CV 15.1 % (11.8-14.6); RBC DIS.WIDTH-SD 48.5 % (39-53); RED BLOOD COUNT 4.28 M/uL (3.80-5.20); WHITE BLOOD COUNT 9.3 K/uL (4.1-10.2)
[2016-11-08 12:55] LABS: INTER. NORMALIZED RATIO 1.2; PROTHROMBIN TIME 12.8 SEC (10.2-12.9)
[2016-11-08 12:58] LABS: CHLORIDE 99 mEq/L (99-109); POTASSIUM 4.9 mEq/L (3.7-5.4); PTT 28.2 SEC (25-37); SODIUM 135 mEq/L (136-147)
[2016-11-08 13:02] LABS: ANION GAP 13 MEQ/L (2-14); GLUCOSE 406 mg/dL (70-99)
[2016-11-08 13:03] LABS: TOTAL BILIRUBIN 0.9 mg/dL (0.0-1.0)
[2016-11-08 13:04] LABS: ALKALINE PHOSPHATASE 111 IU/L (3-129)
[2016-11-08 13:05] LABS: GFR ESTIMATE (CALCULATED) 22 mL/min/
[2016-11-08 13:06] LABS: DIRECT BILIRUBIN 0.3 mg/dL (0.0-0.3); UREA NITROGEN (BUN) 59 mg/dL (9-23)
[2016-11-08 13:11] LABS: TROP-I INTERPRETATION NEGATIVE; TROPONIN-I 0.03 ng/mL (0.0-0.30)
[2016-11-08 13:49] LABS: LIPASE 7318 U/L (1.0-51.0)
[2016-11-08] MEDS ORDERED: ENTRESTO 49 MG1 EACH PO ×2 (15:56→16:01)
[2016-11-08] MEDS ORDERED: LEVOTHYROXINE125 MCG PO (15:58)
[2016-11-08] MEDS ORDERED: AVAPRO300 MG PO (15:59)
[2016-11-08] MEDS ORDERED: BYSTOLIC10 MG PO (15:59)
[2016-11-08] MEDS ORDERED: DELSYM30 MG/5 M1 PO (16:00)
[2016-11-08] MEDS ORDERED: CRESTOR10 MG PO (16:00)
[2016-11-08 16:01] LABS: POINT-OF-CARE METER ID UU13113702
[2016-11-08] MEDS ORDERED: FUROSEMIDE40 MG PO (16:14)
[2016-11-08 17:00] VITALS: BP 209/93
[2016-11-08 17:08] LABS: POINT-OF-CARE METER ID UU13113781
[2016-11-08 18:55] LABS: Estimated Average Glucose 192 mg/dL (70-123); HEMOGLOBIN A1c (GLYCOHEMOGLOB) 8.3 % HGB (Below 5.7)
[2016-11-08 20:23] VITALS: BP 138/61
[2016-11-08 21:54] LABS: POINT-OF-CARE METER ID UU13113781
[2016-11-08 23:32] VITALS: BP 94/53
[2016-11-09] VITALS (7 sets, daily range): BP systolic 113–147; BP diastolic 62–77
[2016-11-09 05:48] LABS: HEMATOCRIT 30.8 % (36.0-46.0); MCH 28.9 PG (29.0-34.0); MCHC 31.5 G/DL (30.0-36.0); MCV 91.7 FL (83-99); MEAN PLAT.VOLUME 11.4 uM^3 (9.5-12.4); PLATELET COUNT 209 K/uL (156-360); RBC DIS.WIDTH-CV 15.4 % (11.8-14.6); RBC DIS.WIDTH-SD 52.1 % (39-53)
[2016-11-09 05:50] LABS: RED BLOOD COUNT 3.36 M/uL (3.80-5.20)
[2016-11-09 06:01] LABS: ANION GAP 9 MEQ/L (2-14); CHLORIDE 109 MEQ/L (99-109); GFR ESTIMATE (CALCULATED) 24 mL/min/; POTASSIUM 4.9 MEQ/L (3.7-5.4); SAMPLE HEMOLYSIS CHECK 0; SAMPLE ICTERIC CHECK 0; SAMPLE LIPEMIA CHECK 0; UREA NITROGEN (BUN) 52 mg/dL (9-23)
[2016-11-09 06:13] LABS: POINT-OF-CARE METER ID UU13113781
[2016-11-09 06:22] LABS: GLUCOSE 188 mg/dL (70-99); SODIUM 142 MEQ/L (136-147)
[2016-11-09 11:32] LABS: LIPASE 1382 U/L (1.0-51.0)
[2016-11-09 22:36] LABS: POINT-OF-CARE METER ID UU14188625
[2016-11-10 03:44] VITALS: BP 110/64
[2016-11-10 05:59] LABS: EOSINOPHIL (%) 6.4 % (0-5); EOSINOPHIL COUNT 0.4 K/uL (0-0.3); HEMATOCRIT 29.1 % (36.0-46.0); IMMATURE GRANULOCYTE (%) 0.2 % (0.0-0.7); LYMPHOCYTE COUNT 0.9 K/uL (1.0-2.8); MCH 30.1 PG (29.0-34.0); MCHC 32.3 G/DL (30.0-36.0); MCV 93.3 FL (83-99); MEAN PLAT.VOLUME 11.4 uM^3 (9.5-12.4); MONOCYTE (%) 8.3 % (3-12); MONOCYTE COUNT 0.5 K/uL (0-0.8); NEUTROPHIL (%) 68.8 % (45-76); PLATELET COUNT 178 K/uL (156-360); RBC DIS.WIDTH-CV 15.7 % (11.8-14.6); RBC DIS.WIDTH-SD 53.6 % (39-53); RED BLOOD COUNT 3.12 M/uL (3.80-5.20); WHITE BLOOD COUNT 5.8 K/uL (4.1-10.2)
[2016-11-10 06:17] LABS: ALKALINE PHOSPHATASE 83 IU/L (3-129); ANION GAP 5 MEQ/L (2-14); CHLORIDE 110 MEQ/L (99-109); GFR ESTIMATE (CALCULATED) 27 mL/min/; GLUCOSE 130 mg/dL (70-99); MAGNESIUM 1.9 mg/dl (1.3-2.7); POTASSIUM 4.1 MEQ/L (3.7-5.4); SAMPLE HEMOLYSIS CHECK 0; SAMPLE ICTERIC CHECK 0; SAMPLE LIPEMIA CHECK 0; SODIUM 140 MEQ/L (136-147); TOTAL BILIRUBIN 0.5 MG/DL (0.0-1.0); UREA NITROGEN (BUN) 43 mg/dL (9-23)
[2016-11-10 07:45] VITALS: BP 146/73
[2016-11-10 11:24] VITALS: BP 139/66
[2016-11-10 12:49] LABS: POINT-OF-CARE METER ID UU13113717
[2016-11-10 15:19] VITALS: BP 134/69
[2016-11-10 16:59] LABS: POINT-OF-CARE METER ID UU14174225
[2016-11-10 20:59] VITALS: BP 162/71
[2016-11-10 21:22] LABS: POINT-OF-CARE METER ID UU14174225
[2016-11-11 00:54] VITALS: BP 165/88
[2016-11-11 08:02] VITALS: BP 141/81
[2016-11-11 08:34] LABS: POINT-OF-CARE METER ID UU14174225
[2016-11-11 12:13] LABS: POINT-OF-CARE METER ID UU13113717
== END 2016-11-11 13:38 | disposition home health service (06) | DRG 439 ==
LOC: EME 11:48 → EDOF 14:11 → 4EAST 14:11 → ENRESERV 14:13 → 4EAST 16:40 → CANRESERV 11-09 10:11 → ENRESERV 11-09 10:11 → 5SOUTH 11-09 21:29
PROVIDERS: Emergency Medicine; Internal Medicine
DX: K85.90 Acute pancreatitis without necrosis or infection, unspecified (principal); Z68.41 Body mass index [BMI] 40.0-44.9, adult; N17.9 Acute kidney failure, unspecified; I13.0 Hypertensive heart and chronic kidney disease with heart failure and stage 1 through stage 4 chronic kidney disease, or unspecified chronic kidney disease; Q44.4 Choledochal cyst; K51.90 Ulcerative colitis, unspecified, without complications; K86.2 Cyst of pancreas; E03.9 Hypothyroidism, unspecified; E78.5 Hyperlipidemia, unspecified; J45.909 Unspecified asthma, uncomplicated; K21.9 Gastro-esophageal reflux disease without esophagitis; E11.21 Type 2 diabetes mellitus with diabetic nephropathy; E11.22 Type 2 diabetes mellitus with diabetic chronic kidney disease; K76.0 Fatty (change of) liver, not elsewhere classified; E11.43 Type 2 diabetes mellitus with diabetic autonomic (poly)neuropathy; E11.65 Type 2 diabetes mellitus with hyperglycemia; E86.0 Dehydration; K31.84 Gastroparesis; N18.9 Chronic kidney disease, unspecified; E66.9 Obesity, unspecified; I25.10 Atherosclerotic heart disease of native coronary artery without angina pectoris; I48.2 Chronic atrial fibrillation; I50.9 Heart failure, unspecified; Z60.2 Problems related to living alone; Z95.1 Presence of aortocoronary bypass graft; Z98.61 Coronary angioplasty status; Z90.710 Acquired absence of both cervix and uterus; Z79.4 Long term (current) use of insulin; I25.2 Old myocardial infarction; Z90.49 Acquired absence of other specified parts of digestive tract; Z80.1 Family history of malignant neoplasm of trachea, bronchus and lung; Z82.61 Family history of arthritis
CPT/HCPCS: 71010; 74176; 74181; 80048; 80053; 80061; 80076; 82948; 83036; 83690; 83735; 84484; 85025; 85027; 85610; 85730; 93005; 94640; 94640 76; 99281; 99285; J1170; J1644; J1815; J2270; J2405; J7030; S0028

== ENCOUNTER 2017-03-14 17:00 | Inpatient (IN) | payer BC ==
[~2017-03-14] VITALS: Ht 162.6 cm; Wt 114.0 kg
[~2017-03-14 17:00] MED LIST changes: +AVAPRO300 MG PO; +DELSYM30 MG/5 M1 PO; +ENTRESTO 49 MG1 EACH PO; +FUROSEMIDE40 MG PO
[2017-03-14 18:07] LABS: HEMATOCRIT 35.2 % (36.0-46.0); HEMOGLOBIN 11.8 G/DL (11.9-15.5); MCH 30.6 PG (29.0-34.0); MCHC 33.5 G/DL (30.0-36.0); MCV 91.2 FL (83-99); PLATELET COUNT 211 K/uL (156-360); RBC DIS.WIDTH-CV 14.1 % (11.8-14.6); RBC DIS.WIDTH-SD 47.7 % (39-53); RED BLOOD COUNT 3.86 M/uL (3.80-5.20)
[2017-03-14 18:14] LABS: CHLORIDE 98 mEq/L (99-109); POTASSIUM 3.5 mEq/L (3.7-5.4); SODIUM 139 mEq/L (136-147)
[2017-03-14 18:16] LABS: GLUCOSE 322 mg/dL (70-99)
[2017-03-14 18:20] LABS: GFR ESTIMATE (CALCULATED) 12 mL/min/; UREA NITROGEN (BUN) 84 mg/dL (9-23)
[2017-03-14 21:31] LABS: ALBUMIN 3.3 g/dL (3.2-4.8)
[2017-03-14 21:34] LABS: TOTAL PROTEIN 7.3 g/dL (6.4-8.3)
[2017-03-14 21:36] LABS: TOTAL BILIRUBIN 0.6 mg/dL (0.0-1.0)
[2017-03-14 21:37] LABS: INTER. NORMALIZED RATIO 1.1
[2017-03-14 21:37] LABS: ALKALINE PHOSPHATASE 93 IU/L (3-129)
[2017-03-14 21:39] LABS: PTT 27.5 SEC (25-37)
[2017-03-14 21:39] LABS: AST (GOT) 16 IU/L (2-34); DIRECT BILIRUBIN 0.2 mg/dL (0.0-0.3)
[2017-03-14 21:40] LABS: ALT (GPT) 15 IU/L (3-49); LIPASE 6 U/L (1.0-51.0)
[2017-03-14 21:55] LABS: APPEARANCE CLOUDY ((CLEAR)); BILIRUBIN NEGATIVE; BLOOD MODERATE; GLUCOSE (STRIP) 50; KETONES NEGATIVE; LEUKOCYTES MODERATE; NITRITE NEGATIVE; PROTEIN (STRIP) 100; SPECIFIC GRAVITY 1.018 (1.000-1.030)
[2017-03-14 21:58] LABS: TROP-I INTERPRETATION NEGATIVE; TROPONIN-I 0.02 ng/mL (0.0-0.30)
[2017-03-14 21:59] LABS: COLOR YELLOW ((YELLOW))
[2017-03-14 22:30] LABS: AMORPHOUS URATES CRYSTALS 1+; BACTERIA 1+ /HPF; EPITHELIAL CELLS 1+ /HPF; FINE GRANULAR CASTS 0-5 /LPF; MUCUS NONE SEEN /LPF; RED BLOOD CELLS 0-5 /HPF (0-5); WHITE BLOOD CELLS RARE /HPF (0-5)
[2017-03-15] MEDS ORDERED: LEVOTHYROXINE50 MCG PO (02:06)
[2017-03-15] MEDS ORDERED: METOPROLOL SUCC25 MG PO (02:07)
[2017-03-15] MEDS ORDERED: PROMETHAZINE HC25 M1 PO (02:08)
[2017-03-15] MEDS ORDERED: ERGOCALCIF50000 UNIT PO (02:08)
[2017-03-15] MEDS ORDERED: METOCLOPRAMIDE10 MG PO (02:09)
[2017-03-15] MEDS ORDERED: POTASSIUM CHLO20 ME1 PO (02:10)
[2017-03-15 03:37] LABS: TROP-I INTERPRETATION NEGATIVE; TROPONIN-I 0.03 ng/mL (0.0-0.30)
[2017-03-15 09:33] VITALS: BP 137/57
[2017-03-15 10:04] LABS: HEMATOCRIT 33.3 % (36.0-46.0); HEMOGLOBIN 10.8 G/DL (11.9-15.5); MCV 93.5 FL (83-99)
[2017-03-15 10:29] LABS: ALBUMIN 3.1 G/DL (3.2-4.8); CHLORIDE 100 MEQ/L (99-109); GFR ESTIMATE (CALCULATED) 12 mL/min/; GLUCOSE 231 mg/dL (70-99); PHOSPHORUS 4.3 mg/dL (2.5-4.9); POTASSIUM 3.3 MEQ/L (3.7-5.4); SODIUM 139 MEQ/L (136-147); UREA NITROGEN (BUN) 89 mg/dL (9-23)
[2017-03-15 11:42] VITALS: BP 125/61
[2017-03-15 16:50] VITALS: BP 122/58
[2017-03-15 19:30] VITALS: BP 131/60
[2017-03-15 20:54] LABS: HEMATOCRIT 30.6 % (36.0-46.0); MCV 94.4 FL (83-99)
[2017-03-16 00:07] VITALS: BP 103/69
[2017-03-16 06:46] LABS: BASOPHIL (%) 0.5 % (0-1); EOSINOPHIL (%) 11.9 % (0-5); EOSINOPHIL COUNT 0.5 K/uL (0-0.3); HEMATOCRIT 29.7 % (36.0-46.0); HEMOGLOBIN 9.5 G/DL (11.9-15.5); IMMATURE GRANULOCYTE (%) 0.3 % (0.0-0.7); LYMPHOCYTE (%) 27.2 % (15-42); LYMPHOCYTE COUNT 1.1 K/uL (1.0-2.8); MCH 30.4 PG (29.0-34.0); MCV 95.2 FL (83-99); MONOCYTE (%) 13.7 % (3-12); MONOCYTE COUNT 0.5 K/uL (0-0.8); NEUTROPHIL (%) 46.4 % (45-76); NEUTROPHIL COUNT 1.8 K/uL (1.8-6.4); RBC DIS.WIDTH-CV 14.3 % (11.8-14.6); RBC DIS.WIDTH-SD 49.6 % (39-53); RED BLOOD COUNT 3.12 M/uL (3.80-5.20); WHITE BLOOD COUNT 3.9 K/uL (4.1-10.2)
[2017-03-16 06:49] LABS: CREATININE 3.4 MG/DL (0.6-1.3); GFR ESTIMATE (CALCULATED) 14 mL/min/; GLUCOSE 140 mg/dL (70-99); MAGNESIUM 1.8 mg/dl (1.3-2.7); PHOSPHORUS 2.8 mg/dL (2.5-4.9); POTASSIUM 3.8 MEQ/L (3.7-5.4); SODIUM 144 MEQ/L (136-147); UREA NITROGEN (BUN) 86 mg/dL (9-23)
[2017-03-16 06:50] LABS: CHLORIDE 112 MEQ/L (99-109)
[2017-03-16 06:51] LABS: PLATELET CLUMPS PRESENT - PLATELET COUNT APPEARS ADQ.
[2017-03-16 06:52] LABS: PLATELET COUNT ND K/uL (156-360)
[2017-03-16 08:38] VITALS: BP 101/59
[2017-03-16 10:45] LABS: C DIFF TOXIN POSITIVE (NEGATIVE)
[2017-03-16 11:35] VITALS: BP 134/76
[2017-03-16 16:09] VITALS: BP 169/77
[2017-03-16 20:00] VITALS: BP 149/70
[2017-03-16 20:36] LABS: HEMATOCRIT 30.7 % (36.0-46.0); HEMOGLOBIN 9.8 G/DL (11.9-15.5); MCV 95.6 FL (83-99)
[2017-03-17] VITALS: BP 128/58
[2017-03-17 04:43] VITALS: BP 149/65
[2017-03-17 06:16] LABS: HEMATOCRIT 29.9 % (36.0-46.0); HEMOGLOBIN 9.6 G/DL (11.9-15.5); MCH 30.7 PG (29.0-34.0); MCHC 32.1 G/DL (30.0-36.0); MCV 95.5 FL (83-99); RBC DIS.WIDTH-CV 14.4 % (11.8-14.6); RBC DIS.WIDTH-SD 50.3 % (39-53); RED BLOOD COUNT 3.13 M/uL (3.80-5.20); WHITE BLOOD COUNT 3.6 K/uL (4.1-10.2)
[2017-03-17 06:18] LABS: PLATELET COUNT 145 K/uL (156-360)
[2017-03-17 06:58] LABS: ANISOCYTOSIS 1+; BASOPHIL (%) 0.3 % (0-1); EOSINOPHIL (%) 11.5 % (0-5); EOSINOPHIL COUNT 0.4 K/uL (0-0.3); IMMATURE GRANULOCYTE (%) 0.3 % (0.0-0.7); LYMPHOCYTE (%) 33.3 % (15-42); LYMPHOCYTE COUNT 1.2 K/uL (1.0-2.8); MICROCYTOSIS 1+; MONOCYTE (%) 9.5 % (3-12); MONOCYTE COUNT 0.3 K/uL (0-0.8); NEUTROPHIL (%) 45.1 % (45-76); NEUTROPHIL COUNT 1.6 K/uL (1.8-6.4)
[2017-03-17 07:21] LABS: CHLORIDE 114 MEQ/L (99-109); CREATININE 2.4 MG/DL (0.6-1.3); GFR ESTIMATE (CALCULATED) 22 mL/min/; GLUCOSE 87 mg/dL (70-99); POTASSIUM 3.9 MEQ/L (3.7-5.4); SODIUM 144 MEQ/L (136-147); UREA NITROGEN (BUN) 60 mg/dL (9-23)
[2017-03-17 08:01] VITALS: BP 146/69
[2017-03-17 12:00] VITALS: BP 123/58
[2017-03-17 15:58] VITALS: BP 127/69
[2017-03-17 19:45] LABS: HEMATOCRIT 30.8 % (36.0-46.0); HEMOGLOBIN 9.9 G/DL (11.9-15.5); MCV 95.1 FL (83-99)
[2017-03-17 22:56] VITALS: BP 131/59
[2017-03-18 07:30] VITALS: BP 167/77
[2017-03-18 09:21] LABS: HEMATOCRIT 30.8 % (36.0-46.0); HEMOGLOBIN 9.8 G/DL (11.9-15.5); MCV 94.8 FL (83-99)
[2017-03-18 09:22] LABS: BASOPHIL (%) 0.5 % (0-1); EOSINOPHIL (%) 13.1 % (0-5); EOSINOPHIL COUNT 0.6 K/uL (0-0.3); HEMATOCRIT 30.7 % (36.0-46.0); HEMOGLOBIN 9.7 G/DL (11.9-15.5); IMMATURE GRANULOCYTE (%) 0.7 % (0.0-0.7); LYMPHOCYTE (%) 31.9 % (15-42); LYMPHOCYTE COUNT 1.4 K/uL (1.0-2.8); MCHC 31.6 G/DL (30.0-36.0); MONOCYTE (%) 6.3 % (3-12); MONOCYTE COUNT 0.3 K/uL (0-0.8); NEUTROPHIL (%) 47.5 % (45-76); NEUTROPHIL COUNT 2.1 K/uL (1.8-6.4); PLATELET COUNT 168 K/uL (156-360); RBC DIS.WIDTH-SD 48.4 % (39-53); RED BLOOD COUNT 3.23 M/uL (3.80-5.20); WHITE BLOOD COUNT 4.4 K/uL (4.1-10.2)
[2017-03-18 10:01] LABS: ALBUMIN 2.7 G/DL (3.2-4.8); ALKALINE PHOSPHATASE 61 IU/L (3-129); ALT (GPT) 16 IU/L (3-49); AST (GOT) 28 IU/L (2-34); CHLORIDE 117 MEQ/L (99-109); GFR ESTIMATE (CALCULATED) 27 mL/min/; GLUCOSE 153 mg/dL (70-99); MAGNESIUM 1.7 mg/dl (1.3-2.7); PHOSPHORUS 1.9 mg/dL (2.5-4.9); POTASSIUM 4.4 MEQ/L (3.7-5.4); SODIUM 146 MEQ/L (136-147); TOTAL BILIRUBIN 0.3 MG/DL (0.0-1.0); TOTAL PROTEIN 5.5 G/DL (6.4-8.3); UREA NITROGEN (BUN) 42 mg/dL (9-23)
[2017-03-18] MEDS ORDERED: OYSTER SHELL 51 EACH PO (14:29)
[2017-03-18] MEDS ORDERED: CHLORHEXIDINE473 ML MM (14:29)
[2017-03-18] MEDS ORDERED: LEVEMIR100 UNIT/2 SC (14:29)
[2017-03-18] MEDS ORDERED: PROTONIX40 MG PO (14:29)
[2017-03-18] MEDS ORDERED: SORE THROAT LO1 EAC3 MM (14:29)
[2017-03-18 15:30] VITALS: BP 168/74
== END 2017-03-18 17:40 | disposition home health service (06) | DRG 682 ==
LOC: EME 17:00 → 5EAST 03-15 01:44 → EDOF 03-15 01:44 → ENRESERV 03-15 01:45 → 5EAST 03-15 09:07
PROVIDERS: Hospitalist; Internal Medicine Gastroenterology; Internal Medicine Nephrology; Physician Assistant
PROC: 0DJ08ZZ Inspection of Upper Intestinal Tract, Via Natural or Artificial Opening Endoscopic (ICD-10-PCS; principal; 2017-03-15)
DX: N17.8 Other acute kidney failure (principal); N14.1 Nephropathy induced by other drugs, medicaments and biological substances; T46.5X5A Adverse effect of other antihypertensive drugs, initial encounter; T50.2X5A Adverse effect of carbonic-anhydrase inhibitors, benzothiadiazides and other diuretics, initial encounter; I13.0 Hypertensive heart and chronic kidney disease with heart failure and stage 1 through stage 4 chronic kidney disease, or unspecified chronic kidney disease; I50.43 Acute on chronic combined systolic (congestive) and diastolic (congestive) heart failure; N18.4 Chronic kidney disease, stage 4 (severe); E11.22 Type 2 diabetes mellitus with diabetic chronic kidney disease; A04.72 Enterocolitis due to Clostridium difficile, not specified as recurrent; A08.4 Viral intestinal infection, unspecified; E11.65 Type 2 diabetes mellitus with hyperglycemia; K22.11 Ulcer of esophagus with bleeding; E66.01 Morbid (severe) obesity due to excess calories; Z68.41 Body mass index [BMI] 40.0-44.9, adult; E86.0 Dehydration; E87.6 Hypokalemia; I48.91 Unspecified atrial fibrillation; I25.10 Atherosclerotic heart disease of native coronary artery without angina pectoris; K21.0 Gastro-esophageal reflux disease with esophagitis; J98.11 Atelectasis; J45.909 Unspecified asthma, uncomplicated; I25.2 Old myocardial infarction; E78.5 Hyperlipidemia, unspecified; D63.8 Anemia in other chronic diseases classified elsewhere; E03.9 Hypothyroidism, unspecified; I45.10 Unspecified right bundle-branch block; M19.90 Unspecified osteoarthritis, unspecified site; Z87.440 Personal history of urinary (tract) infections; Z79.4 Long term (current) use of insulin; Z79.82 Long term (current) use of aspirin; Z79.02 Long term (current) use of antithrombotics/antiplatelets; Z95.1 Presence of aortocoronary bypass graft; Z95.5 Presence of coronary angioplasty implant and graft; Z96.653 Presence of artificial knee joint, bilateral
CPT/HCPCS: 71046; 74176; 76770; 80048; 80053; 80069; 80076; 81003; 82948; 83690; 83735; 84100; 84484; 85014; 85018; 85025; 85027; 85610; 85730; 86850; 86900; 86901; 87493; 87502; 93005; 93306; 94640; 94640 76; 99202; 99281; 99285; C9113; J0696; J1815; J2765; J3480; J7030; S0028

== ENCOUNTER 2017-04-02 10:48 | Emergency (ER) | payer BC ==
[~2017-04-02] VITALS: Ht 160 cm; Wt 114.2 kg
[~2017-04-02 10:48] MED LIST changes: +CHLORHEXIDINE473 ML MM; +LEVOTHYROXINE50 MCG PO; +METOCLOPRAMIDE10 MG PO; +METOPROLOL SUCC25 MG PO; +OYSTER SHELL 51 EACH PO; +POTASSIUM CHLO20 ME1 PO; +PROMETHAZINE HC25 M1 PO; +PROTONIX40 MG PO; +SORE THROAT LO1 EAC3 MM
[2017-04-02 10:58] VITALS: BP 146/75
== END 2017-04-02 11:43 | disposition home or self-care (01) ==
LOC: EME 10:48
DX: G56.03 Carpal tunnel syndrome, bilateral upper limbs (principal); I50.9 Heart failure, unspecified; I11.0 Hypertensive heart disease with heart failure; J44.9 Chronic obstructive pulmonary disease, unspecified; E11.9 Type 2 diabetes mellitus without complications; Z79.4 Long term (current) use of insulin; Z79.82 Long term (current) use of aspirin; Z95.1 Presence of aortocoronary bypass graft; Z88.5 Allergy status to narcotic agent; Z88.8 Allergy status to other drugs, medicaments and biological substances

== ENCOUNTER 2017-07-31 13:11 | Inpatient (IN) | payer BC ==
[~2017-07-31] VITALS: Ht 165.1 cm; Wt 117.1 kg
[~2017-07-31 13:11] MED LIST changes: +BYSTOLIC5 MG PO; -LEVOTHYROXINE50 MCG PO
[2017-07-31 13:44] LABS: BASOPHIL (%) 0.7 % (0-1); BASOPHIL COUNT 0.1 K/uL (0-0.1); EOSINOPHIL (%) 1.7 % (0-5); EOSINOPHIL COUNT 0.2 K/uL (0-0.3); HEMATOCRIT 34.7 % (36.0-46.0); HEMOGLOBIN 11.7 G/DL (11.9-15.5); IMMATURE GRANULOCYTE (%) 0.4 % (0.0-0.7); LYMPHOCYTE (%) 15.1 % (15-42); LYMPHOCYTE COUNT 1.6 K/uL (1.0-2.8); MCH 28.7 PG (29.0-34.0); MCHC 33.7 G/DL (30.0-36.0); MCV 85.3 FL (83-99); MONOCYTE (%) 8.2 % (3-12); MONOCYTE COUNT 0.9 K/uL (0-0.8); NEUTROPHIL (%) 73.9 % (45-76); NEUTROPHIL COUNT 7.7 K/uL (1.8-6.4); PLATELET COUNT 279 K/uL (156-360); RBC DIS.WIDTH-CV 13.6 % (11.8-14.6); RBC DIS.WIDTH-SD 42.5 % (39-53); RED BLOOD COUNT 4.07 M/uL (3.80-5.20); WHITE BLOOD COUNT 10.5 K/uL (4.1-10.2)
[2017-07-31 13:58] LABS: ALBUMIN 3.4 g/dL (3.2-4.8); CHLORIDE 91 mEq/L (99-109); POTASSIUM 3.2 mEq/L (3.7-5.4); SODIUM 134 mEq/L (136-147)
[2017-07-31 13:59] LABS: INTER. NORMALIZED RATIO 1.2
[2017-07-31 14:00] LABS: GLUCOSE 86 mg/dL (70-99)
[2017-07-31 14:01] LABS: TOTAL PROTEIN 6.4 g/dL (6.4-8.3)
[2017-07-31 14:01] LABS: PTT 23.1 SEC (25-37)
[2017-07-31 14:03] LABS: TOTAL BILIRUBIN 0.8 mg/dL (0.0-1.0)
[2017-07-31 14:04] LABS: ALKALINE PHOSPHATASE 87 IU/L (3-129); CREATININE 4.2 mg/dL (0.6-1.3); GFR ESTIMATE (CALCULATED) 11 mL/min/
[2017-07-31 14:05] LABS: UREA NITROGEN (BUN) 60 mg/dL (9-23)
[2017-07-31 14:06] LABS: AST (GOT) 12 IU/L (2-34)
[2017-07-31 14:07] LABS: ALT (GPT) 6 IU/L (3-49)
[2017-07-31 14:08] LABS: TROP-I INTERPRETATION NEGATIVE; TROPONIN-I 0.04 ng/mL (0.0-0.30)
[2017-07-31 14:08] LABS: LIPASE 18 U/L (1.0-51.0)
[2017-07-31 16:08] LABS: APPEARANCE CLEAR ((CLEAR)); BILIRUBIN NEGATIVE; BLOOD NEGATIVE; COLOR YELLOW ((YELLOW)); GLUCOSE (STRIP) NEGATIVE; KETONES NEGATIVE; LEUKOCYTES NEGATIVE; NITRITE NEGATIVE; PROTEIN (STRIP) NEGATIVE; SPECIFIC GRAVITY 1.004 (1.000-1.030); UCUL ADDED? NO; UROBILINOGEN 0.2 MG/DL (0.2-1.0)
[2017-07-31] MEDS ORDERED: ENTRESTO 49 MG1 EACH PO (17:49)
[2017-07-31] MEDS ORDERED: BUMEX1 MG PO (17:56)
[2017-07-31] MEDS ORDERED: LEVEMIR100 UNIT/2 SC (17:56)
[2017-07-31 19:00] VITALS: BP 121/65
[2017-08-01] VITALS (7 sets, daily range): BP systolic 87–131; BP diastolic 55–87
[2017-08-01 05:55] LABS: MCH 28.6 PG (29.0-34.0); MCHC 32.4 G/DL (30.0-36.0); MCV 88.1 FL (83-99); PLATELET COUNT 200 K/uL (156-360); RBC DIS.WIDTH-SD 44.8 % (39-53); RED BLOOD COUNT 3.29 M/uL (3.80-5.20); WHITE BLOOD COUNT 6.7 K/uL (4.1-10.2)
[2017-08-01 05:57] LABS: HEMOGLOBIN 9.4 G/DL (11.9-15.5)
[2017-08-01 06:18] LABS: CHLORIDE 101 MEQ/L (99-109); CREATININE 3.9 MG/DL (0.6-1.3); GFR ESTIMATE (CALCULATED) 12 mL/min/; POTASSIUM 3.2 MEQ/L (3.7-5.4); SODIUM 139 MEQ/L (136-147); UREA NITROGEN (BUN) 61 mg/dL (9-23)
[2017-08-01 06:35] LABS: GLUCOSE 110 mg/dL (70-99)
[2017-08-01 11:02] LABS: HEMOGLOBIN A1c (GLYCOHEMOGLOB) 7.9 % (Below 5.7)
[2017-08-02 04:00] VITALS: BP 146/65
[2017-08-02 05:11] LABS: HEMATOCRIT 28.3 % (36.0-46.0); MCH 28.5 PG (29.0-34.0); MCHC 31.8 G/DL (30.0-36.0); MCV 89.6 FL (83-99); PLATELET COUNT 177 K/uL (156-360); RBC DIS.WIDTH-CV 13.9 % (11.8-14.6); RBC DIS.WIDTH-SD 45.8 % (39-53); RED BLOOD COUNT 3.16 M/uL (3.80-5.20); WHITE BLOOD COUNT 5.2 K/uL (4.1-10.2)
[2017-08-02 05:45] LABS: CHLORIDE 109 MEQ/L (99-109); GFR ESTIMATE (CALCULATED) 22 mL/min/; GLUCOSE 161 mg/dL (70-99); POTASSIUM 3.8 MEQ/L (3.7-5.4); SODIUM 140 MEQ/L (136-147); UREA NITROGEN (BUN) 44 mg/dL (9-23)
[2017-08-02 05:55] LABS: CREATININE 2.4 MG/DL (0.6-1.3)
[2017-08-02 08:30] VITALS: BP 151/70
[2017-08-02 11:25] VITALS: BP 145/80
[2017-08-02 16:00] VITALS: BP 163/72
[2017-08-02 19:05] VITALS: BP 135/71
[2017-08-03 00:29] VITALS: BP 150/74
[2017-08-03 04:45] VITALS: BP 172/75
[2017-08-03 05:32] LABS: BASOPHIL (%) 0.8 % (0-1); BASOPHIL COUNT 0.1 K/uL (0-0.1); EOSINOPHIL (%) 7.8 % (0-5); EOSINOPHIL COUNT 0.5 K/uL (0-0.3); HEMATOCRIT 29.6 % (36.0-46.0); HEMOGLOBIN 9.4 G/DL (11.9-15.5); IMMATURE GRANULOCYTE (%) 0.2 % (0.0-0.7); LYMPHOCYTE (%) 17.3 % (15-42); LYMPHOCYTE COUNT 1.1 K/uL (1.0-2.8); MCH 28.2 PG (29.0-34.0); MCHC 31.8 G/DL (30.0-36.0); MCV 88.9 FL (83-99); MONOCYTE (%) 8.1 % (3-12); MONOCYTE COUNT 0.5 K/uL (0-0.8); NEUTROPHIL (%) 65.8 % (45-76); NEUTROPHIL COUNT 4.2 K/uL (1.8-6.4); PLATELET COUNT 193 K/uL (156-360); RBC DIS.WIDTH-CV 13.8 % (11.8-14.6); RBC DIS.WIDTH-SD 44.8 % (39-53); RED BLOOD COUNT 3.33 M/uL (3.80-5.20); WHITE BLOOD COUNT 6.4 K/uL (4.1-10.2)
[2017-08-03 05:55] LABS: CHLORIDE 106 MEQ/L (99-109); GFR ESTIMATE (CALCULATED) 28 mL/min/; GLUCOSE 174 mg/dL (70-99); POTASSIUM 3.9 MEQ/L (3.7-5.4); SODIUM 137 MEQ/L (136-147); UREA NITROGEN (BUN) 29 mg/dL (9-23)
[2017-08-03 05:56] LABS: CREATININE 1.9 MG/DL (0.6-1.3)
[2017-08-03 07:43] VITALS: BP 142/77
[2017-08-03] MEDS ORDERED: TRAMADOL HCL50 MG PO (09:08)
== END 2017-08-03 11:09 | disposition home health service (06) | DRG 292 ==
LOC: EME 13:11 → 4EAST 17:02 → EDOF 17:02 → ENRESERV 17:10 → 4EAST 18:54
PROVIDERS: Emergency Medicine; Internal Medicine; Internal Medicine Nephrology
DX: I13.0 Hypertensive heart and chronic kidney disease with heart failure and stage 1 through stage 4 chronic kidney disease, or unspecified chronic kidney disease (principal); N17.9 Acute kidney failure, unspecified; N18.4 Chronic kidney disease, stage 4 (severe); E11.22 Type 2 diabetes mellitus with diabetic chronic kidney disease; I25.10 Atherosclerotic heart disease of native coronary artery without angina pectoris; E78.5 Hyperlipidemia, unspecified; E87.2 Acidosis; Z95.1 Presence of aortocoronary bypass graft; Z96.653 Presence of artificial knee joint, bilateral; E86.0 Dehydration; I95.9 Hypotension, unspecified; I45.10 Unspecified right bundle-branch block; E66.01 Morbid (severe) obesity due to excess calories; Z68.41 Body mass index [BMI] 40.0-44.9, adult; E87.6 Hypokalemia; Z95.5 Presence of coronary angioplasty implant and graft; I50.9 Heart failure, unspecified; Z87.19 Personal history of other diseases of the digestive system; Z86.19 Personal history of other infectious and parasitic diseases; I48.91 Unspecified atrial fibrillation; E86.1 Hypovolemia; Z79.4 Long term (current) use of insulin; M19.90 Unspecified osteoarthritis, unspecified site
CPT/HCPCS: 71046; 76770; 80048; 80053; 81003; 82948; 83036; 83605; 83690; 84484; 85025; 85027; 85610; 85730; 86850; 86900; 86901; 87040; 93005; 99281; 99285; C9113; J1644; J1815; J7030

== ENCOUNTER 2017-08-12 15:07 | Inpatient (IN) | payer BC ==
[~2017-08-12] VITALS: Ht 160 cm; Wt 113.8 kg
[~2017-08-12 15:07] MED LIST changes: +BUMEX1 MG PO; +EFFEXOR XR37.5 MG PO; -EFFEXOR XR75 MG PO; +TRAMADOL HCL50 MG PO
[2017-08-12 16:10] LABS: ALBUMIN 3.4 g/dL (3.2-4.8); CHLORIDE 94 mEq/L (99-109); POTASSIUM 3.5 mEq/L (3.7-5.4); SODIUM 138 mEq/L (136-147)
[2017-08-12 16:11] LABS: HEMATOCRIT 36.8 % (36.0-46.0); MCHC 34.2 G/DL (30.0-36.0); RBC DIS.WIDTH-CV 13.6 % (11.8-14.6); RBC DIS.WIDTH-SD 42.5 % (39-53); WHITE BLOOD COUNT 11.7 K/uL (4.1-10.2)
[2017-08-12 16:12] LABS: GLUCOSE 101 mg/dL (70-99); HEMOGLOBIN 12.6 G/DL (11.9-15.5); MCV 84.8 FL (83-99); PLATELET COUNT 400 K/uL (156-360); RED BLOOD COUNT 4.34 M/uL (3.80-5.20); TOTAL PROTEIN 6.6 g/dL (6.4-8.3)
[2017-08-12 16:16] LABS: ALKALINE PHOSPHATASE 89 IU/L (3-129); CREATININE 4.2 mg/dL (0.6-1.3); GFR ESTIMATE (CALCULATED) 11 mL/min/
[2017-08-12 16:17] LABS: UREA NITROGEN (BUN) 58 mg/dL (9-23)
[2017-08-12 16:18] LABS: AST (GOT) 15 IU/L (2-34)
[2017-08-12 16:19] LABS: ALT (GPT) 7 IU/L (3-49)
[2017-08-12 16:22] LABS: TROP-I INTERPRETATION NEGATIVE; TROPONIN-I 0.27 ng/mL (0.0-0.30)
[2017-08-12 16:34] LABS: APPEARANCE CLOUDY ((CLEAR)); BILIRUBIN NEGATIVE; BLOOD NEGATIVE; COLOR AMBER ((YELLOW)); GLUCOSE (STRIP) NEGATIVE; KETONES 5; LEUKOCYTES NEGATIVE; NITRITE NEGATIVE; PROTEIN (STRIP) 30; SPECIFIC GRAVITY 1.017 (1.000-1.030)
[2017-08-12 16:56] LABS: BACTERIA 2+ /HPF; EPITHELIAL CELLS 2+ /HPF; MUCUS 3+ /LPF; RED BLOOD CELLS 0-5 /HPF (0-5); UCUL ADDED? YES; WHITE BLOOD CELLS NONE SEEN /HPF (0-5)
[2017-08-12 16:57] LABS: AMORPHOUS URATES CRYSTALS 2+
[2017-08-12] MEDS ORDERED: LABETALOL HCL100 MG PO (18:07)
[2017-08-12] MEDS ORDERED: NIFEDIPINE ER30 MG PO (18:10)
[2017-08-12] MEDS ORDERED: TRAZODONE HCL50 MG PO (18:10)
[2017-08-12] MEDS ORDERED: METOCLOPRAMIDE10 MG PO (18:11)
[2017-08-12] MEDS ORDERED: PANTOPRAZOLE SO40 MG PO (18:12)
[2017-08-12] MEDS ORDERED: ENTRESTO 49 MG1 EACH PO (18:13)
[2017-08-12] MEDS ORDERED: CALCIUM600 M1 PO (18:15)
[2017-08-12] MEDS ORDERED: METOPROLOL SUCC25 MG PO (18:16)
[2017-08-12] MEDS ORDERED: LEVEMIR100 UNIT/2 SC (18:20)
[2017-08-12] MEDS ORDERED: NOVOLOG MI100 UNIT/3 SC (18:21)
[2017-08-12 19:40] VITALS: BP 135/65
[2017-08-12 19:42] LABS: TROP-I INTERPRETATION NEGATIVE; TROPONIN-I 0.22 ng/mL (0.0-0.30)
[2017-08-12 22:54] LABS: TROP-I INTERPRETATION NEGATIVE; TROPONIN-I 0.21 ng/mL (0.0-0.30)
[2017-08-12 23:42] VITALS: BP 121/59
[2017-08-13] VITALS (7 sets, daily range): BP systolic 85–143; BP diastolic 54–70
[2017-08-13 05:19] LABS: BASOPHIL (%) 0.7 % (0-1); BASOPHIL COUNT 0.1 K/uL (0-0.1); EOSINOPHIL (%) 0.5 % (0-5); EOSINOPHIL COUNT 0.1 K/uL (0-0.3); HEMATOCRIT 33.8 % (36.0-46.0); HEMOGLOBIN 10.7 G/DL (11.9-15.5); IMMATURE GRANULOCYTE (%) 0.3 % (0.0-0.7); LYMPHOCYTE (%) 19.5 % (15-42); LYMPHOCYTE COUNT 1.8 K/uL (1.0-2.8); MCHC 31.7 G/DL (30.0-36.0); MCV 88.5 FL (83-99); MONOCYTE COUNT 0.6 K/uL (0-0.8); NEUTROPHIL COUNT 6.6 K/uL (1.8-6.4); PLATELET COUNT 336 K/uL (156-360); RBC DIS.WIDTH-CV 13.9 % (11.8-14.6); RBC DIS.WIDTH-SD 45.2 % (39-53); RED BLOOD COUNT 3.82 M/uL (3.80-5.20); WHITE BLOOD COUNT 9.2 K/uL (4.1-10.2)
[2017-08-13 05:51] LABS: CHLORIDE 101 MEQ/L (99-109); CREATININE 3.7 MG/DL (0.6-1.3); GFR ESTIMATE (CALCULATED) 13 mL/min/; GLUCOSE 89 mg/dL (70-99); POTASSIUM 3.7 MEQ/L (3.7-5.4); SODIUM 140 MEQ/L (136-147); UREA NITROGEN (BUN) 57 mg/dL (9-23)
[2017-08-13 08:32] LABS: UR CREATININE CONCENTRATION 421.9 MG/DL
[2017-08-13 11:25] LABS: TROP-I INTERPRETATION NEGATIVE; TROPONIN-I 0.19 ng/mL (0.0-0.30)
[2017-08-14 03:44] VITALS: BP 125/61
[2017-08-14 05:46] LABS: HEMATOCRIT 30.5 % (36.0-46.0); HEMOGLOBIN 9.5 G/DL (11.9-15.5); MCH 28.2 PG (29.0-34.0); MCHC 31.1 G/DL (30.0-36.0); MCV 90.5 FL (83-99); PLATELET COUNT 265 K/uL (156-360); RBC DIS.WIDTH-CV 14.1 % (11.8-14.6); RBC DIS.WIDTH-SD 46.6 % (39-53); RED BLOOD COUNT 3.37 M/uL (3.80-5.20); WHITE BLOOD COUNT 6.6 K/uL (4.1-10.2)
[2017-08-14 07:29] LABS: ALBUMIN 2.7 G/DL (3.2-4.8); CHLORIDE 108 MEQ/L (99-109); GFR ESTIMATE (CALCULATED) 20 mL/min/; GLUCOSE 86 mg/dL (70-99); IRON 35 MCG/DL (35-150); MAGNESIUM 1.7 mg/dl (1.3-2.7); PHOSPHORUS 3.1 mg/dL (2.5-4.9); POTASSIUM 3.4 MEQ/L (3.7-5.4); SODIUM 141 MEQ/L (136-147); TRANSFERRIN (TIBC) 159.3 mg/dL (215-380); TRANSFERRIN SATUR. 22 % (20-55); UREA NITROGEN (BUN) 44 mg/dL (9-23)
[2017-08-14 07:31] LABS: CREATININE 2.6 MG/DL (0.6-1.3)
[2017-08-14 08:06] LABS: THYROTROPIN (TSH) 4.4 MIU/L (0.4-5.5)
[2017-08-14 08:08] VITALS: BP 121/67
[2017-08-14 09:45] LABS: AMYLASE 28 IU/L (1-118); LIPASE 19 U/L (1.0-51.0)
[2017-08-14 11:29] VITALS: BP 129/64
[2017-08-14 16:03] VITALS: BP 163/74
[2017-08-14 19:06] VITALS: BP 146/66
[2017-08-14 23:15] VITALS: BP 139/64
[2017-08-15 03:50] VITALS: BP 148/66
[2017-08-15 06:04] LABS: BASOPHIL (%) 0.7 % (0-1); EOSINOPHIL (%) 7.3 % (0-5); EOSINOPHIL COUNT 0.4 K/uL (0-0.3); HEMATOCRIT 29.3 % (36.0-46.0); HEMOGLOBIN 9.1 G/DL (11.9-15.5); IMMATURE GRANULOCYTE (%) 0.3 % (0.0-0.7); LYMPHOCYTE (%) 18.8 % (15-42); LYMPHOCYTE COUNT 1.1 K/uL (1.0-2.8); MCH 28.3 PG (29.0-34.0); MCHC 31.1 G/DL (30.0-36.0); MONOCYTE (%) 6.6 % (3-12); MONOCYTE COUNT 0.4 K/uL (0-0.8); NEUTROPHIL (%) 66.3 % (45-76); NEUTROPHIL COUNT 3.8 K/uL (1.8-6.4); PLATELET COUNT 215 K/uL (156-360); RBC DIS.WIDTH-CV 13.8 % (11.8-14.6); RBC DIS.WIDTH-SD 46.4 % (39-53); RED BLOOD COUNT 3.22 M/uL (3.80-5.20); WHITE BLOOD COUNT 5.7 K/uL (4.1-10.2)
[2017-08-15 06:35] LABS: ALBUMIN 2.6 G/DL (3.2-4.8); CHLORIDE 111 MEQ/L (99-109); CREATININE 1.8 MG/DL (0.6-1.3); GFR ESTIMATE (CALCULATED) 30 mL/min/; GLUCOSE 97 mg/dL (70-99); MAGNESIUM 1.5 mg/dl (1.3-2.7); PHOSPHORUS 2.4 mg/dL (2.5-4.9); POTASSIUM 3.8 MEQ/L (3.7-5.4); SODIUM 143 MEQ/L (136-147); UREA NITROGEN (BUN) 29 mg/dL (9-23)
[2017-08-15 07:05] VITALS: BP 167/76
[2017-08-15 11:30] VITALS: BP 161/74
[2017-08-15 15:29] VITALS: BP 148/67
[2017-08-15 19:58] VITALS: BP 164/74
[2017-08-15 23:38] VITALS: BP 161/75
[2017-08-16 04:02] VITALS: BP 172/77
[2017-08-16 07:41] LABS: ALBUMIN 2.6 G/DL (3.2-4.8); CHLORIDE 110 MEQ/L (99-109); CREATININE 1.7 MG/DL (0.6-1.3); GFR ESTIMATE (CALCULATED) 32 mL/min/; GLUCOSE 123 mg/dL (70-99); PHOSPHORUS 2.1 mg/dL (2.5-4.9); POTASSIUM 3.7 MEQ/L (3.7-5.4); SODIUM 140 MEQ/L (136-147); UREA NITROGEN (BUN) 20 mg/dL (9-23)
[2017-08-16 07:44] LABS: MAGNESIUM 1.8 mg/dl (1.3-2.7)
[2017-08-16 07:57] VITALS: BP 151/71
[2017-08-16] MEDS ORDERED: APRESOLINE25 MG PO (09:50)
[2017-08-16] MEDS ORDERED: LASIX20 MG PO (09:50)
[2017-08-16] MEDS ORDERED: LOPRESSOR25 MG PO (09:50)
[2017-08-16] MEDS ORDERED: METOCLOPRAMIDE H5 MG PO (09:50)
[2017-08-16 11:26] VITALS: BP 175/74
== END 2017-08-16 12:50 | disposition home health service (06) | DRG 682 ==
LOC: EME 15:07 → EDOF 17:31 → 4EAST 17:31 → ENRESERV 17:38 → 4EAST 19:32 → ENRESERV 08-14 12:11 → 2EAST 08-14 15:49
PROVIDERS: Emergency Medicine Emergency Medical Services; Internal Medicine; Internal Medicine Nephrology
DX: N17.9 Acute kidney failure, unspecified (principal); G93.40 Encephalopathy, unspecified; I50.33 Acute on chronic diastolic (congestive) heart failure; I13.0 Hypertensive heart and chronic kidney disease with heart failure and stage 1 through stage 4 chronic kidney disease, or unspecified chronic kidney disease; J98.11 Atelectasis; F33.9 Major depressive disorder, recurrent, unspecified; E87.2 Acidosis; N39.0 Urinary tract infection, site not specified; Z68.43 Body mass index [BMI] 50.0-59.9, adult; I11.0 Hypertensive heart disease with heart failure; I45.2 Bifascicular block; I95.9 Hypotension, unspecified; N18.4 Chronic kidney disease, stage 4 (severe); I48.0 Paroxysmal atrial fibrillation; I25.10 Atherosclerotic heart disease of native coronary artery without angina pectoris; K21.0 Gastro-esophageal reflux disease with esophagitis; M19.90 Unspecified osteoarthritis, unspecified site; E87.6 Hypokalemia; E86.1 Hypovolemia; E86.0 Dehydration; E78.5 Hyperlipidemia, unspecified; E66.01 Morbid (severe) obesity due to excess calories; E11.22 Type 2 diabetes mellitus with diabetic chronic kidney disease; E03.9 Hypothyroidism, unspecified; B18.2 Chronic viral hepatitis C; Z96.653 Presence of artificial knee joint, bilateral; I25.5 Ischemic cardiomyopathy; K52.9 Noninfective gastroenteritis and colitis, unspecified; T46.5X5A Adverse effect of other antihypertensive drugs, initial encounter; Z79.4 Long term (current) use of insulin; Z87.440 Personal history of urinary (tract) infections; Z90.710 Acquired absence of both cervix and uterus; Z91.19 Patient's noncompliance with other medical treatment and regimen; Z95.1 Presence of aortocoronary bypass graft; Z95.5 Presence of coronary angioplasty implant and graft; Z91.013 Allergy to seafood; Z80.1 Family history of malignant neoplasm of trachea, bronchus and lung
CPT/HCPCS: 70450; 71045; 80048; 80053; 80069; 81003; 82150; 82436; 82570; 82948; 83540; 83605; 83690; 83735; 83880; 84133; 84156; 84300; 84443; 84466; 84484; 85025; 85027; 87040; 87086; 87493; 93005; 94799; 99202; 99281; 99285; J0696; J1644; J2405; J3475; J7030; J7040

== ENCOUNTER 2017-09-13 13:42 | Emergency (ER) | payer BC ==
[~2017-09-13] VITALS: Ht 165.1 cm; Wt 118.7 kg
[~2017-09-13 13:42] MED LIST changes: +APRESOLINE25 MG PO; +CALCIUM600 M1 PO; +LABETALOL HCL100 MG PO; +LOPRESSOR25 MG PO; +NOVOLOG MI100 UNIT/3 SC; +PANTOPRAZOLE SO40 MG PO; +TRAZODONE HCL50 MG PO
[2017-09-13 14:55] LABS: HEMATOCRIT 25.2 % (36.0-46.0); MCH 28.7 PG (29.0-34.0); MCHC 31.7 G/DL (30.0-36.0); MCV 90.3 FL (83-99); RBC DIS.WIDTH-CV 15.5 % (11.8-14.6); RED BLOOD COUNT 2.79 M/uL (3.80-5.20); WHITE BLOOD COUNT 7.1 K/uL (4.1-10.2)
[2017-09-13 15:03] LABS: PLATELET COUNT 236 K/uL (156-360)
[2017-09-13 15:10] LABS: CHLORIDE 109 mEq/L (99-109); POTASSIUM 4.5 mEq/L (3.7-5.4); SODIUM 142 mEq/L (136-147)
[2017-09-13 15:12] LABS: GLUCOSE 124 mg/dL (70-99)
[2017-09-13 15:16] LABS: CREATININE 1.6 mg/dL (0.6-1.3); GFR ESTIMATE (CALCULATED) 35 mL/min/
[2017-09-13 15:17] LABS: UREA NITROGEN (BUN) 31 mg/dL (9-23)
[2017-09-13 15:19] LABS: TROP-I INTERPRETATION NEGATIVE; TROPONIN-I 0.02 ng/mL (0.0-0.30)
[2017-09-13 16:45] VITALS: BP 169/82
== END 2017-09-13 17:15 | disposition home or self-care (01) ==
LOC: EME 13:42
PROVIDERS: Emergency Medicine
DX: R20.0 Anesthesia of skin (principal); W18.30XA Fall on same level, unspecified, initial encounter; D64.9 Anemia, unspecified; I45.10 Unspecified right bundle-branch block; E11.22 Type 2 diabetes mellitus with diabetic chronic kidney disease; I13.0 Hypertensive heart and chronic kidney disease with heart failure and stage 1 through stage 4 chronic kidney disease, or unspecified chronic kidney disease; N18.9 Chronic kidney disease, unspecified; I50.9 Heart failure, unspecified; E03.9 Hypothyroidism, unspecified; E78.5 Hyperlipidemia, unspecified; J44.9 Chronic obstructive pulmonary disease, unspecified; I25.2 Old myocardial infarction; Z95.1 Presence of aortocoronary bypass graft; Z86.73 Personal history of transient ischemic attack (TIA), and cerebral infarction without residual deficits; Z79.4 Long term (current) use of insulin; Z79.82 Long term (current) use of aspirin
CPT/HCPCS: 80048; 84484; 85027; 93005; 99281; 99285